=== PATIENT | female | born 1980 | race Caucasian/White ===

== ENCOUNTER → 2016-07-16 | Outpatient (CLI) | payer OTHER | LOC: MW.CHFP 09:54 | PROVIDERS: ATTEND Nurse Practitioner Family | DX: J02.9 Acute pharyngitis, unspecified (principal) | CPT/HCPCS: 87081; 87880 ==

== ENCOUNTER → 2016-09-08 | Outpatient (CLI) | payer OTHER | LOC: MW.CHFP 13:30 | PROVIDERS: ATTEND Nurse Practitioner Family | DX: Z00.00 Encounter for general adult medical examination without abnormal findings (principal) | CPT/HCPCS: 36415; 80061; 82947; 83036 ==

== ENCOUNTER 2017-01-24 21:10 | Emergency (ER) | payer OTHER ==
[2017-01-24] MEDS ORDERED: Sodium Chloride 0.9% 10 ML Syringe FLUSH PRN (21:24)
[2017-01-24] MEDS ORDERED: Sodium Chloride 0.9% 2.5 ML Syringe FLUSH PRN (21:24)
[2017-01-24] MEDS ORDERED: Sodium Chloride 0.9% 1,000 ML IV ONE (21:24)
--- NOTE | 2017-01-24 21:27 | EDM.PDOC ---
ED HPI GENERAL MEDICAL PROBLEM - General Chief Complaint: Cardiovascular Problem Stated Complaint: HBP/CHEST PAIN/DIZZY Time Seen by Provider: 01/24/17 21:25 Source of Information: Reports: Patient History Limitations: Reports: No Limitations - History of Present Illness INITIAL COMMENTS - FREE TEXT/NARRATIVE: HISTORY AND PHYSICAL: []36-year-old female presenting with dizziness and elevated blood pressure starting today History of Present Illness: []Patient relates to increased dizziness with standing up Patient has had a tubal ligation Review of Systems: As per history of present illness and below otherwise all systems reviewed and negative. Past medical history: As per history of present illness and as reviewed below otherwise noncontributory. Surgical history: As per history of present illness and as reviewed below otherwise noncontributory. Social history: No reported history of drug or alcohol abuse. Family history: As per history of present illness and as reviewed below otherwise noncontributory. Physical exam: Alert and oriented female, answering questions appropriately, does not look toxic. Answering questions in full sentences without shortness of breath HEENT: Atraumatic, normocehpalic, pupils reactive, negative for conjunctival pallor or scleral icterus, mucous membranes moist, throat clear, neck supple, nontender, trachea midline. Right tympanic membrane mild erythema slightly bulging. Lungs: Clear to auscultation, breath sounds equal bilaterally, chest non tender. Heart: S1S2, regular, negative for clicks, rubs, or JVD. Abdomen: Soft, nondistended, nontender. Negative for masses or hepatossplenmegaly. Negative for costovertebral tenderness. Pelvis: Stable nontender. Genitourinary: Deferred. Rectal: Deferred Extremities: Atraumatic, negative for cords or calf pain. Neurovascular unremarkable. Neuro: Awake, alert, oriented. Cranial nerves II through XII unremarkable. Cerebellum unremarkable. Motor and sensory unremarkable throughout. Exam nonfocal. Diagnostics: [CBC CMP and UA urine culture, orthostatic vitals, chest x-ray] Therapeutics: [Normal saline] Impression: [viral syndrome] Vertigo Plan: [Discharged to home Continue with by mouth fluids Off work for 24 hours Follow-up with your primary care provider in 2 days] Definitive disposition and diagnosis as appropriate pending reevaluation and review of above. Onset: Today, Sudden - Related Data Allergies Allergy/AdvReac Type Severity Reaction Status Date / Time Sulfa (Sulfonamide Allergy Intermediate Anaphylactic Verified 06/11/16 14:00 Antibiotics) Shock Home Meds: Home Meds Pregabalin [Lyrica] 75 mg PO TID 11/30/13 [History] traMADol [Ultram] 50 mg PO ASDIRECTED PRN 11/30/13 [History] Meclizine HCl 25 mg PO TID PRN #30 tablet 01/24/17 [Rx] Past Medical History Respiratory History: Reports: None. Denies: Asthma, COPD, PE Gastrointestinal History: Reports: GERD Genitourinary History: Reports: None. Denies: Chronic Renal Insuffiency Musculoskeletal History: Reports: Fibromyalgia, RA Endocrine/Metabolic History: Reports: None. Denies: Diabetes, Type II, Hypothyroidism - Infectious Disease History Infectious Disease History: Reports: Chicken Pox - Past Surgical History GI Surgical History: Reports: Appendectomy Social & Family History - Family History Family Medical History: Noncontributory HEENT: Reports: Impaired Vision Cardiac: Reports: Hypertension GI: Reports: Other (See Below) Other GI Family History: gastric problems OBGYN: Reports: Musculoskeletal: Reports: Arthritis Psychiatric: Reports: Anxiety, Depression Oncologic: Reports: Cervix, Skin - Tobacco Use Smoking Status *Q: Current Every Day Smoker Years of Tobacco use: 20 Packs/Tins Daily: 0.5 Used Tobacco, but Quit: No Second Hand Smoke Exposure: No - Caffeine Use Caffeine Use: Reports: Coffee - Alcohol Use Days Per Week of Alcohol Use: 3 Number of Drinks Per Day: 1 Total Drinks Per Week: 3 - Recreational Drug Use Recreational Drug Use: No - Living Situation & Occupation Living situation: Reports: Occupation: Employed ED ROS GENERAL - Review of Systems Review Of Systems: ROS reveals no pertinent complaints other than HPI. ED EXAM, GENERAL - Physical Exam Exam: See Below (See dictation) Course - Vital Signs Last Recorded V/S: Last Vital Signs Temp 36.8 C 01/24/17 21:13 Pulse 71 01/24/17 21:43 Resp 18 01/24/17 21:43 BP 127/82 01/24/17 21:43 Pulse Ox 98 01/24/17 21:43 - Orders/Labs/Meds Orders: Active Orders 24 hr Category Date Time Status Chest 2V [CR] Stat Exams 01/24/17 21:27 Ordered COMPREHENSIVE METABOLIC PN,CMP [CHEM] Stat Lab 01/24/17 21:25 Received CULTURE URINE [RM] Stat Lab 01/24/17 21:30 Received LIPASE [CHEM] Stat Lab 01/24/17 21:25 Received TSH [CHEM] Stat Lab 01/24/17 21:25 Received UA W/MICROSCOPIC [URIN] Stat Lab 01/24/17 21:30 Received Sodium Chloride 0.9% [Normal Saline] 1,000 ml Med 01/24/17 21:24 Active IV STAT Sodium Chloride 0.9% [Saline Flush] Med 01/24/17 21:24 Active 10 ml FLUSH ASDIRECTED PRN Sodium Chloride 0.9% [Saline Flush] Med 01/24/17 21:24 Active 2.5 ml FLUSH ASDIRECTED PRN Saline Lock Insert [OM.PC] Stat Oth 01/24/17 21:24 Ordered Medication Orders Sodium Chloride (Normal Saline) 1,000 mls @ 999 mls/hr IV STAT ONE Stop: 01/24/17 22:24 Last Admin: 01/24/17 21:41 Dose: 999 mls/hr Sodium Chloride (Saline Flush) 10 ml FLUSH ASDIRECTED PRN PRN Reason: Keep Vein Open Last Admin: 01/24/17 21:42 Dose: 10 ml Sodium Chloride (Saline Flush) 2.5 ml FLUSH ASDIRECTED PRN PRN Reason: Keep Vein Open Last Admin: 01/24/17 21:41 Dose: 2.5 ml Labs: Laboratory Tests 01/24/17 Range/Units 21:25 WBC 9.85 (4.0-11.0) K/uL RBC 4.20 L (4.30-5.90) M/uL Hgb 13.8 (12.0-16.0) g/dL Hct 40.2 (36.0-46.0) % MCV 95.7 (80.0-98.0) fL MCH 32.9 H (27.0-32.0) pg MCHC 34.3 (31.0-37.0) g/dL RDW Std Deviation 47.0 (28.0-62.0) fl RDW Coeff of Reji 13 (11.0-15.0) % Plt Count 254 (150-400) K/uL MPV 11.60 (7.40-12.00) fL Neut % (Auto) 54.5 (48.0-80.0) % Lymph % (Auto) 33.0 (16.0-40.0) % [place] % (Auto) 10.4 (0.0-15.0) % Eos % (Auto) 1.3 (0.0-7.0) % Baso % (Auto) 0.8 (0.0-1.5) % Neut # (Auto) 5.4 (1.4-5.7) K/uL Lymph # (Auto) 3.3 H (0.6-2.4) K/uL [place] # (Auto) 1.0 H (0.0-0.8) K/uL Eos # (Auto) 0.1 (0.0-0.7) K/uL Baso # (Auto) 0.1 (0.0-0.1) K/uL Nucleated RBC % 0.0 /100WBC Nucleated RBCs # 0 K/uL Meds: Medications Generic Name Dose Route Start Last Admin Trade Name Freq PRN Reason Stop Dose Admin Sodium Chloride 1,000 mls @ 999 mls/hr 01/24/17 21:24 01/24/17 21:41 Normal Saline IV 01/24/17 22:24 999 mls/hr STAT ONE Administration Sodium Chloride 10 ml 01/24/17 21:24 01/24/17 21:42 Saline Flush FLUSH 10 ml ASDIRECTED PRN Administration Keep Vein Open Sodium Chloride 2.5 ml 01/24/17 21:24 01/24/17 21:41 Saline Flush FLUSH 2.5 ml ASDIRECTED PRN Administration Keep Vein Open Departure - Departure Time of Disposition: 21:54 Disposition: Home, Self-Care 01 Condition: Good Clinical Impression: Acute viral syndrome Viral labyrinthitis syndrome Qualifiers: Laterality: right Qualified Code(s): H83.01 - Labyrinthitis, right ear Prescriptions: Meclizine HCl 25 mg PO TID PRN #30 tablet PRN Reason: Dizziness Referrals: Rhonda Franklin NP [Primary Care Provider] - Forms: ED Department Discharge - My Orders Last 24 Hours: My Active Orders 01/24/17 21:24 Sodium Chloride 0.9% [Normal Saline] 1,000 ml IV STAT Sodium Chloride 0.9% [Saline Flush] 10 ml FLUSH ASDIRECTED PRN Sodium Chloride 0.9% [Saline Flush] 2.5 ml FLUSH ASDIRECTED PRN Saline Lock Insert [OM.PC] Stat 01/24/17 21:25 COMPREHENSIVE METABOLIC PN,CMP [CHEM] Stat LIPASE [CHEM] Stat TSH [CHEM] Stat 01/24/17 21:27 Chest 2V [CR] Stat 01/24/17 21:30 CULTURE URINE [RM] Stat UA W/MICROSCOPIC [URIN] Stat - Assessment/Plan Last 24 Hours: My Active Orders 01/24/17 21:24 Sodium Chloride 0.9% [Normal Saline] 1,000 ml IV STAT Sodium Chloride 0.9% [Saline Flush] 10 ml FLUSH ASDIRECTED PRN Sodium Chloride 0.9% [Saline Flush] 2.5 ml FLUSH ASDIRECTED PRN Saline Lock Insert [OM.PC] Stat 01/24/17 21:25 COMPREHENSIVE METABOLIC PN,CMP [CHEM] Stat LIPASE [CHEM] Stat TSH [CHEM] Stat 01/24/17 21:27 Chest 2V [CR] Stat 01/24/17 21:30 CULTURE URINE [RM] Stat UA W/MICROSCOPIC [URIN] Stat
[2017-01-24 22:12] LABS: CHLORIDE,CL 108 mmol/L (98-110); SODIUM,NA 141 mmol/L (136-146)
[2017-01-24 23:21] VITALS: BP 128/70
--- NOTE | 2017-01-25 11:56 | CR ---
EXAM DATE: 01/24/17 PATIENT'S AGE: 36 Patient: COLE MCCARTHY Facility: [place], [place] Site . Site : [id number] Study: XRay Chest [id number] 10:10:20 PM Ordering Physician: Doctor Connor Final Report: INDICATION: hypertension TECHNIQUE: Chest radiograph 2 views COMPARISON: None FINDINGS: Cardiovascular and mediastinum: The cardiac silhouette is normal in appearance and size. Mediastinum is within normal limits. Lungs and pleural spaces: Both lungs are unremarkable in appearance. No sign of pleural effusion. No pneumothorax is seen. Bones and soft tissues: No significant findings. IMPRESSION: 1. No acute cardiopulmonary disease seen. Dictated by: Jasper Rushing MD @ 01/24/2017 22:25:16 (Electronic Signature) Report Signed by Proxy. [facility] HOSPITALNeelima
== END 2017-01-24 23:35 | disposition home or self-care (01) ==
LOC: MW.ED 21:10
DX: H83.01 Labyrinthitis, right ear (principal); B34.9 Viral infection, unspecified; R42 Dizziness and giddiness; K21.9 Gastro-esophageal reflux disease without esophagitis; F17.210 Nicotine dependence, cigarettes, uncomplicated; Z88.2 Allergy status to sulfonamides; Z90.49 Acquired absence of other specified parts of digestive tract
CPT/HCPCS: 36415; 71020; 80053; 81001; 83690; 84443; 85025; 87086; 96360; 96361; 99284; J7040; 99283

== ENCOUNTER 2021-02-24 12:22 | Inpatient (IN) | payer OTHER ==
[2021-02-24] MEDS ORDERED: Codeine/guaiFENesin 10-100 MG/5 ML Syrup 5 ML Cup PO ONE (13:28)
--- NOTE | 2021-02-24 13:56 | CR ---
INDICATION: Pain, shortness of breath. TECHNIQUE: Chest 1 view. COMPARISON: Chest radiograph 01/24/2017. FINDINGS: There are extensive streaky and patchy opacities throughout the lungs bilaterally suspicious for pneumonia. No pleural effusion or pneumothorax. Normal heart size. The bones are unremarkable. IMPRESSION: Extensive streaky and patchy opacities throughout the lungs bilaterally suspicious for pneumonia. Rule out COVID. Dictated by Gretta Hunt MD @ 02/24/2021 1:55:34 PM (Electronically Signed)
--- NOTE | 2021-02-24 13:58 | EDM.PDOC ---
ED HPI GENERAL MEDICAL PROBLEM - General Chief Complaint: Respiratory Problem Stated Complaint: LOW OXYGEN Time Seen by Provider: 02/24/21 12:43 Source of Information: Reports: Patient History Limitations: Reports: No Limitations - History of Present Illness INITIAL COMMENTS - FREE TEXT/NARRATIVE: Presents reporting a 1 week history of cough, some sore throat, headache, body aches, fever as high as 101. Her shortness of breath is progressively gotten worse since Tuesday. She has not been nauseated and has been taking oral fluids without vomiting. She has a history of fibromyalgia and vocal cord dysfunction. She does vape nicotine and has a [id number] smoking history. She does not currently smoke. She had a tubal ligation. She has taken NyQuil and DayQuil for her symptoms. She works alone but did have COVID exposure. headache Pain Score (Numeric/FACES): 7 - Related Data Allergies Allergy/AdvReac Type Severity Reaction Status Date / Time Sulfa (Sulfonamide Allergy Intermediate Anaphylactic Verified 02/24/21 12:33 Antibiotics) Shock Home Meds: Home Meds Pregabalin [Lyrica] 100 mg PO BID 11/30/13 [History] traMADol [Ultram] 50 mg PO BID PRN 11/30/13 [History] Norethindrone Acetate [Norethindrone AC ([place])] 5 mg PO BID 02/24/21 [History] Oxybutynin [Oxybutynin ER] 10 mg PO DAILY 02/24/21 [History] buPROPion [buPROPion XL] 150 mg PO DAILY 02/24/21 [History] Past Medical History HEENT History: Reports: None Cardiovascular History: Reports: None Respiratory History: Reports: None Gastrointestinal History: Reports: GERD Genitourinary History: Reports: None [employer] History: Reports: Musculoskeletal History: Reports: Fibromyalgia, RA Neurological History: Reports: None Psychiatric History: Reports: None Endocrine/Metabolic History: Reports: None Hematologic History: Reports: None Immunologic History: Reports: None Oncologic (Cancer) History: Reports: None Dermatologic History: Reports: None - Infectious Disease History Infectious Disease History: Reports: Chicken Pox - Past Surgical History Head Surgeries/Procedures: Reports: None GI Surgical History: Reports: Appendectomy Female Surgical History: Reports: Tubal Ligation Social & Family History - Family History Family Medical History: No Pertinent Family History HEENT: Reports: Impaired Vision Cardiac: Reports: Hypertension GI: Reports: Other (See Below) Other GI Family History: gastric problems OBGYN: Reports: Musculoskeletal: Reports: Arthritis Psychiatric: Reports: Anxiety, Depression Oncologic: Reports: Cervix, Skin - Tobacco Use Tobacco Use Status *Q: Current Every Day Tobacco User Years of Tobacco use: 20 Packs/Tins Daily: 1 - Caffeine Use Caffeine Use: Reports: Coffee, Energy Drinks, Tea - Recreational Drug Use Recreational Drug Use: No - Living Situation & Occupation Living situation: Reports: Occupation: Employed ED ROS GENERAL - Review of Systems Review Of Systems: Comprehensive ROS is negative, except as noted in HPI. ED EXAM, GENERAL - Physical Exam Exam: See Below Exam Limited By: No Limitations General Appearance: Alert, Mild Distress (due to cough and SOB) Ears: Normal External Exam, Normal TMs Nose: Normal Inspection Throat/Mouth: Normal Inspection, Normal Oropharynx, No Airway Compromise, Other (Hx of vocal cord dysfunction with retrained mechanics of breathing) Head: Atraumatic, Normocephalic Neck: Normal Inspection Respiratory/Chest: No Respiratory Distress, Decreased Breath Sounds, Other (tachypnea, harsh almost continuous cough in exam room) Cardiovascular: Normal Peripheral Pulses GI/Abdominal: Normal Bowel Sounds, Soft, No Distention Back Exam: Normal Inspection Extremities: Normal Inspection Neurological: Alert, Oriented Psychiatric: Normal Affect, Normal Mood Skin Exam: Warm, Intact, Normal Color, No Rash, Diaphoretic (mild) Lymphatic: No Adenopathy Course - Vital Signs Text/Narrative:: Tachycardia and tachypnea likely due to COVID pneumonia. Discussion with Dr. Hui, hospitalist service. Same will admit for COVID related pneumonia and hypoxemia. Last Recorded V/S: Last Vital Signs Temp 36.4 C 02/24/21 12:32 Pulse 100 02/24/21 15:47 Resp 28 H 02/24/21 15:47 BP 148/82 H 02/24/21 15:47 Pulse Ox 94 L 02/24/21 15:47 - Orders/Labs/Meds Orders: Active Orders 24 hr Category Date Time Status Patient Status [ADT] Stat ADT 02/24/21 16:40 Ordered BILIRUBIN DIRECT [CHEM] DAILY Lab 02/25/21 14:30 Ordered BILIRUBIN DIRECT [CHEM] DAILY Lab 02/26/21 14:30 Ordered BILIRUBIN DIRECT [CHEM] DAILY Lab 02/27/21 14:30 Ordered BILIRUBIN DIRECT [CHEM] DAILY Lab 02/28/21 14:30 Ordered COMPREHENSIVE METABOLIC PN,CMP [CHEM] DAILY Lab 02/25/21 14:30 Ordered COMPREHENSIVE METABOLIC PN,CMP [CHEM] DAILY Lab 02/26/21 14:30 Ordered COMPREHENSIVE METABOLIC PN,CMP [CHEM] DAILY Lab 02/27/21 14:30 Ordered COMPREHENSIVE METABOLIC PN,CMP [CHEM] DAILY Lab 02/28/21 14:30 Ordered Sodium Chloride 0.9% [Normal Saline] 1,000 ml Med 02/24/21 15:33 Active IV STAT Medication Orders Sodium Chloride (Normal Saline) 1,000 mls @ 30 mls/hr IV STAT STA Stop: 02/26/21 00:52 Last Admin: 02/24/21 15:35 Dose: 30 mls/hr Documented by: ALICE Labs: Laboratory Tests 02/24/21 02/24/21 02/24/21 Range/Units 13:05 15:27 15:27 WBC (4.0-11.0) K/uL RBC (4.30-5.90) M/uL Hgb (12.0-16.0) g/dL Hct (36.0-46.0) % MCV (80.0-98.0) fL MCH (27.0-32.0) pg MCHC (31.0-37.0) g/dL RDW Std Deviation (28.0-62.0) fl RDW Coeff of Reji (11.0-15.0) % Plt Count (150-400) K/uL MPV (7.40-12.00) fL Neut % (Auto) (48.0-80.0) % Lymph % (Auto) (16.0-40.0) % [place] % (Auto) (0.0-15.0) % Eos % (Auto) (0.0-7.0) % Baso % (Auto) (0.0-1.5) % Neut # (Auto) (1.4-5.7) K/uL Lymph # (Auto) (0.6-2.4) K/uL [place] # (Auto) (0.0-0.8) K/uL Eos # (Auto) (0.0-0.7) K/uL Baso # (Auto) (0.0-0.1) K/uL Nucleated RBC % /100WBC Nucleated RBCs # K/uL Sodium 143 (136-145) mmol/L Potassium 3.7 (3.5-5.1) mmol/L Chloride 104 (98-107) mmol/L Carbon Dioxide 22.7 (21.0-32.0) mmol/L BUN 10 (7.0-18.0) mg/dL Creatinine 1.0 (0.6-1.0) mg/dL Est Cr Clr Drug Dosing 74.68 mL/min Estimated GFR (MDRD) > 60.0 ml/min Glucose 117 H (74-106) mg/dL Calcium 7.7 L (8.5-10.1) mg/dL Total Bilirubin 0.4 (0.2-1.0) mg/dL Direct Bilirubin 0.10 (0.0-0.5) mg/dL AST 107 H (15-37) IU/L ALT 155 H (14-63) IU/L Alkaline Phosphatase 82 (46-116) U/L Troponin I < 0.050 (0.000-0.056) ng/mL Total Protein 6.9 (6.4-8.2) g/dL Albumin 2.8 L (3.4-5.0) g/dL Globulin 4.1 H (2.6-4.0) g/dL Albumin/Globulin Ratio 0.7 L (0.9-1.6) SARS-CoV-2 RNA (ALEXANDER) POSITIVE H (NEGATIVE) 02/24/21 Range/Units 15:27 WBC 11.75 H (4.0-11.0) K/uL RBC 4.53 (4.30-5.90) M/uL Hgb 14.7 (12.0-16.0) g/dL Hct 41.7 (36.0-46.0) % MCV 92.1 (80.0-98.0) fL MCH 32.5 H (27.0-32.0) pg MCHC 35.3 (31.0-37.0) g/dL RDW Std Deviation 47.1 (28.0-62.0) fl RDW Coeff of Reji 14 (11.0-15.0) % Plt Count 226 (150-400) K/uL MPV 10.80 (7.40-12.00) fL Neut % (Auto) 90.8 H (48.0-80.0) % Lymph % (Auto) 7.7 L (16.0-40.0) % [place] % (Auto) 1.4 (0.0-15.0) % Eos % (Auto) 0.0 (0.0-7.0) % Baso % (Auto) 0.1 (0.0-1.5) % Neut # (Auto) 10.7 H (1.4-5.7) K/uL Lymph # (Auto) 0.9 (0.6-2.4) K/uL [place] # (Auto) 0.2 (0.0-0.8) K/uL Eos # (Auto) 0.0 (0.0-0.7) K/uL Baso # (Auto) 0.0 (0.0-0.1) K/uL Nucleated RBC % 0.0 /100WBC Nucleated RBCs # 0 K/uL Sodium (136-145) mmol/L Potassium (3.5-5.1) mmol/L Chloride (98-107) mmol/L Carbon Dioxide (21.0-32.0) mmol/L BUN (7.0-18.0) mg/dL Creatinine (0.6-1.0) mg/dL Est Cr Clr Drug Dosing mL/min Estimated GFR (MDRD) ml/min Glucose (74-106) mg/dL Calcium (8.5-10.1) mg/dL Total Bilirubin (0.2-1.0) mg/dL Direct Bilirubin (0.0-0.5) mg/dL AST (15-37) IU/L ALT (14-63) IU/L Alkaline Phosphatase (46-116) U/L Troponin I (0.000-0.056) ng/mL Total Protein (6.4-8.2) g/dL Albumin (3.4-5.0) g/dL Globulin (2.6-4.0) g/dL Albumin/Globulin Ratio (0.9-1.6) SARS-CoV-2 RNA (ALEXANDER) (NEGATIVE) Meds: Medications Generic Name Dose Route Start Last Admin Trade Name Freq PRN Reason Stop Dose Admin Sodium Chloride 1,000 mls @ 30 mls/hr 02/24/21 15:33 02/24/21 15:35 Normal Saline IV 02/26/21 00:52 30 mls/hr STAT STA Administration Discontinued Medications Generic Name Dose Route Start Last Admin Trade Name Darryn PRN Reason Stop Dose Admin Dexamethasone 6 mg 02/24/21 14:39 02/24/21 15:01 Dexamethasone 10 Mg/Ml Sdv IVPUSH 02/24/21 14:40 6 mg ONETIME ONE Administration Guaifenesin/Codeine Phosphate 10 ml 02/24/21 13:28 02/24/21 13:45 Codeine/Guaifenesin 10-100 Mg/5 Ml Syrup 5 Ml Cup PO 02/24/21 13:29 10 ml ONETIME ONE Administration Remdesivir 200 mg/ Sodium 250 mls @ 250 mls/hr 02/24/21 15:15 02/24/21 15:35 Chloride IV 02/24/21 16:14 250 mls/hr ONETIME ONE Administration Departure - Departure Time of Disposition: 16:51 Disposition: Admitted As Inpatient 65 Condition: Fair Clinical Impression: Hypoxemia, COVID-19 - Discharge Information Referrals: Bronson Stuart MD [Primary Care Provider] - Forms: ED Department Discharge Sepsis Event Note (ED) - Evaluation Sepsis Screening Result: Possible Sepsis Risk - Focused Exam Vital Signs: Vital Signs Temp Pulse Resp BP Pulse Ox 02/24/21 15:47 100 28 H 148/82 H 94 L 02/24/21 13:47 99 20 153/90 H 92 L 02/24/21 12:32 36.4 C 113 H 28 H 153/90 H 90 L - My Orders Last 24 Hours: My Active Orders 02/24/21 15:33 Sodium Chloride 0.9% [Normal Saline] 1,000 ml IV STAT 02/24/21 16:40 Patient Status [ADT] Stat 02/25/21 14:30 BILIRUBIN DIRECT [CHEM] DAILY COMPREHENSIVE METABOLIC PN,CMP [CHEM] DAILY 02/26/21 14:30 BILIRUBIN DIRECT [CHEM] DAILY COMPREHENSIVE METABOLIC PN,CMP [CHEM] DAILY 02/27/21 14:30 BILIRUBIN DIRECT [CHEM] DAILY COMPREHENSIVE METABOLIC PN,CMP [CHEM] DAILY 02/28/21 14:30 BILIRUBIN DIRECT [CHEM] DAILY COMPREHENSIVE METABOLIC PN,CMP [CHEM] DAILY - Assessment/Plan Last 24 Hours: My Active Orders 02/24/21 15:33 Sodium Chloride 0.9% [Normal Saline] 1,000 ml IV STAT 02/24/21 16:40 Patient Status [ADT] Stat 02/25/21 14:30 BILIRUBIN DIRECT [CHEM] DAILY COMPREHENSIVE METABOLIC PN,CMP [CHEM] DAILY 02/26/21 14:30 BILIRUBIN DIRECT [CHEM] DAILY COMPREHENSIVE METABOLIC PN,CMP [CHEM] DAILY 02/27/21 14:30 BILIRUBIN DIRECT [CHEM] DAILY COMPREHENSIVE METABOLIC PN,CMP [CHEM] DAILY 02/28/21 14:30 BILIRUBIN DIRECT [CHEM] DAILY COMPREHENSIVE METABOLIC PN,CMP [CHEM] DAILY
[2021-02-24] MEDS ORDERED: REMDESIVIR 200 MG in Sodium Chloride 0.9% 250 ML IV ONE ×2 (14:22→15:15)
[2021-02-24] MEDS ORDERED: Dexamethasone 10 MG/ML SDV IVPUSH ONE (14:39)
[2021-02-24] MEDS ORDERED: Sodium Chloride 0.9% 1,000 ML IV STA (15:33)
[2021-02-24 16:16] LABS: BLOOD UREA NITROGEN,BUN 10 mg/dL (7.0-18.0); CARBON DIOXIDE,CO2 22.7 mmol/L (21.0-32.0); CHLORIDE,CL 104 mmol/L (98-107); GLUCOSE RANDOM 117 mg/dL (74-106); POTASSIUM,K 3.7 mmol/L (3.5-5.1); SODIUM,NA 143 mmol/L (136-145)
[2021-02-24] MEDS ORDERED: Ondansetron 4 MG/2 ML SDV IVPUSH PRN (18:27)
[2021-02-24] MEDS ORDERED: Albuterol/Ipratropium 3.0-0.5 MG/3 ML Neb Soln NEB PRN (18:27)
--- NOTE | 2021-02-24 18:38 | PCM.HP.2 ---
H&P History of Present Illness - General Date of Service: 02/24/21 Admit Problem/Dx: Admission Diagnosis/Problem Admission Diagnosis/Problem Pneumonia - History of Present Illness Initial Comments - Free Text/Narative: Patient is a 40 y/o F with PMH of fibromyalgia, vocal cord dysfunction, Presents to ER reporting a 1 week history of cough, some sore throat, headache, body aches, fever as high as 101. Her shortness of breath is progressively gotten worse since Tuesday. She does vape nicotine and has a [id number] smoking history. She does not currently smoke. In the ER patient was found to be hypoxic, was started on NC for oxygenation, cxr showed b/l infiltrates, tested positive for COVID. Patient was admitted for further management. headache Pain Score (Numeric/FACES): 7 - Related Data Allergies/Adverse Reactions: Allergies Allergy/AdvReac Type Severity Reaction Status Date / Time Sulfa (Sulfonamide Allergy Intermediate Anaphylactic Verified 02/24/21 12:33 Antibiotics) Shock Home Medications: Home Meds Pregabalin [Lyrica] 100 mg PO TID 11/30/13 [History] traMADol [Ultram] 50 mg PO BID PRN 11/30/13 [History] Norethindrone Acetate [Norethindrone AC ([place])] 5 mg PO BID 02/24/21 [History] Oxybutynin [Oxybutynin ER] 10 mg PO DAILY 02/24/21 [History] buPROPion [buPROPion XL] 150 mg PO DAILY 02/24/21 [History] Past Medical History HEENT History: Reports: None Cardiovascular History: Reports: None Respiratory History: Reports: None Gastrointestinal History: Reports: GERD Genitourinary History: Reports: None SHIRT HEMMER History: Reports: Musculoskeletal History: Reports: Fibromyalgia, RA Neurological History: Reports: None Psychiatric History: Reports: None Endocrine/Metabolic History: Reports: None Hematologic History: Reports: None Immunologic History: Reports: None Oncologic (Cancer) History: Reports: None Dermatologic History: Reports: None - Infectious Disease History Infectious Disease History: Reports: Chicken Pox - Past Surgical History Head Surgeries/Procedures: Reports: None GI Surgical History: Reports: Appendectomy Female Surgical History: Reports: Tubal Ligation Social & Family History - Family History Family Medical History: No Pertinent Family History HEENT: Reports: Impaired Vision Cardiac: Reports: Hypertension GI: Reports: Other (See Below) Other GI Family History: gastric problems OBGYN: Reports: Musculoskeletal: Reports: Arthritis Psychiatric: Reports: Anxiety, Depression Oncologic: Reports: Cervix, Skin - Tobacco Use Tobacco Use Status *Q: Current Every Day Tobacco User Years of Tobacco use: 20 Packs/Tins Daily: 1 - Caffeine Use Caffeine Use: Reports: Coffee, Energy Drinks, Tea - Recreational Drug Use Recreational Drug Use: No - Living Situation & Occupation Living situation: Reports: Occupation: Employed H&P Review of Systems - Review of Systems: Review Of Systems: See Below General: Reports: Fever, Malaise, Weakness, Fatigue. Denies: Chills HEENT: Reports: Sinus Congestion. Denies: Dysphasia, Ear Pain, Eye Pain Pulmonary: Reports: Shortness of Breath, Wheezing, Cough, Sputum. Denies: Pleuritic Chest Pain Cardiovascular: Reports: Dyspnea on Exertion. Denies: Chest Pain, Palpitations, Orthopnea, PND, Lightheadedness, Syncope, Claudication Gastrointestinal: Reports: Anorexia, Decreased Appetite. Denies: Abdominal Pain, Black Stool, Bloody Stool, Constipation, Diarrhea, Distension, Mucous in Stool, Nausea, Vomiting Genitourinary: Denies: Dysuria, Frequency, Burning, Urgency Musculoskeletal: Denies: Neck Pain, Shoulder Pain, Arm Pain, Back Pain Skin: Denies: Cyanosis, Jaundice, Mottled Exam - Exam Exam: See Below - Vital Signs Vital Signs: Last Vital Signs Temp 36.4 C 02/24/21 17:59 Pulse 105 H 02/24/21 17:59 Resp 24 H 02/24/21 17:59 BP 146/89 H 02/24/21 17:59 Pulse Ox 94 L 02/24/21 17:59 Weight: 108.862 kg - Exam Quality Assessment: Supplemental Oxygen General: Alert, Oriented, Mild Distress HEENT: Conjunctiva Clear Neck: Supple, Trachea Midline Lungs: Normal Respiratory Effort, Decreased Breath Sounds, Crackles, Rales Cardiovascular: Regular Rate, Regular Rhythm GI/Abdominal Exam: Normal Bowel Sounds, Soft Extremities: Normal Inspection, Normal Range of Motion, Non-Tender, No Pedal Edema - Patient Data Lab Results Last 24 hrs: Laboratory Results - last 24 hr 10/19/21 10/19/21 10/19/21 Range/Units 13:05 15:27 15:27 WBC (4.0-11.0) K/uL RBC (4.30-5.90) M/uL Hgb (12.0-16.0) g/dL Hct (36.0-46.0) % MCV (80.0-98.0) fL MCH (27.0-32.0) pg MCHC (31.0-37.0) g/dL RDW Std Deviation (28.0-62.0) fl RDW Coeff of Erji (11.0-15.0) % Plt Count (150-400) K/uL MPV (7.40-12.00) fL Neut % (Auto) (48.0-80.0) % Lymph % (Auto) (16.0-40.0) % [place] % (Auto) (0.0-15.0) % Eos % (Auto) (0.0-7.0) % Baso % (Auto) (0.0-1.5) % Neut # (Auto) (1.4-5.7) K/uL Lymph # (Auto) (0.6-2.4) K/uL [place] # (Auto) (0.0-0.8) K/uL Eos # (Auto) (0.0-0.7) K/uL Baso # (Auto) (0.0-0.1) K/uL Nucleated RBC % /100WBC Nucleated RBCs # K/uL Sodium 143 (136-145) mmol/L Potassium 3.7 (3.5-5.1) mmol/L Chloride 104 (98-107) mmol/L Carbon Dioxide 22.7 (21.0-32.0) mmol/L BUN 10 (7.0-18.0) mg/dL Creatinine 1.0 (0.6-1.0) mg/dL Est Cr Clr Drug Dosing 74.68 mL/min Estimated GFR (MDRD) > 60.0 ml/min Glucose 117 H (74-106) mg/dL Calcium 7.7 L (8.5-10.1) mg/dL Total Bilirubin 0.4 (0.2-1.0) mg/dL Direct Bilirubin 0.10 (0.0-0.5) mg/dL AST 107 H (15-37) IU/L ALT 155 H (14-63) IU/L Alkaline Phosphatase 82 (46-116) U/L Troponin I < 0.050 (0.000-0.056) ng/mL Total Protein 6.9 (6.4-8.2) g/dL Albumin 2.8 L (3.4-5.0) g/dL Globulin 4.1 H (2.6-4.0) g/dL Albumin/Globulin Ratio 0.7 L (0.9-1.6) SARS-CoV-2 RNA (ALEXANDER) POSITIVE H (NEGATIVE) 02/24/21 Range/Units 15:27 WBC 11.75 H (4.0-11.0) K/uL RBC 4.53 (4.30-5.90) M/uL Hgb 14.7 (12.0-16.0) g/dL Hct 41.7 (36.0-46.0) % MCV 92.1 (80.0-98.0) fL MCH 32.5 H (27.0-32.0) pg MCHC 35.3 (31.0-37.0) g/dL RDW Std Deviation 47.1 (28.0-62.0) fl RDW Coeff of Reji 14 (11.0-15.0) % Plt Count 226 (150-400) K/uL MPV 10.80 (7.40-12.00) fL Neut % (Auto) 90.8 H (48.0-80.0) % Lymph % (Auto) 7.7 L (16.0-40.0) % [place] % (Auto) 1.4 (0.0-15.0) % Eos % (Auto) 0.0 (0.0-7.0) % Baso % (Auto) 0.1 (0.0-1.5) % Neut # (Auto) 10.7 H (1.4-5.7) K/uL Lymph # (Auto) 0.9 (0.6-2.4) K/uL [place] # (Auto) 0.2 (0.0-0.8) K/uL Eos # (Auto) 0.0 (0.0-0.7) K/uL Baso # (Auto) 0.0 (0.0-0.1) K/uL Nucleated RBC % 0.0 /100WBC Nucleated RBCs # 0 K/uL Sodium (136-145) mmol/L Potassium (3.5-5.1) mmol/L Chloride (98-107) mmol/L Carbon Dioxide (21.0-32.0) mmol/L BUN (7.0-18.0) mg/dL Creatinine (0.6-1.0) mg/dL Est Cr Clr Drug Dosing mL/min Estimated GFR (MDRD) ml/min Glucose (74-106) mg/dL Calcium (8.5-10.1) mg/dL Total Bilirubin (0.2-1.0) mg/dL Direct Bilirubin (0.0-0.5) mg/dL AST (15-37) IU/L ALT (14-63) IU/L Alkaline Phosphatase (46-116) U/L Troponin I (0.000-0.056) ng/mL Total Protein (6.4-8.2) g/dL Albumin (3.4-5.0) g/dL Globulin (2.6-4.0) g/dL Albumin/Globulin Ratio (0.9-1.6) SARS-CoV-2 RNA (ALEXANDER) (NEGATIVE) Result Diagrams: 02/24/21 15:27 02/24/21 15:27 Tk Results Last 24 hrs: Microbiology 02/24/21 13:05 Influenza Type A Antigen Screen - Final Nasopharyngeal Swab NEGATIVE INFLUENZA A VIRUS AG REFERENCE RANGE: NEGATIVE Influenza Type B Antigen Screen - Final NEGATIVE INFLUENZA B VIRUS AG REFERENCE RANGE: NEGATIVE Sepsis Event Note - Evaluation Sepsis Screening Result: Possible Sepsis Risk - Focused Exam Vital Signs: Vital Signs Temp Pulse Resp BP Pulse Ox 02/24/21 17:59 36.4 C 105 H 24 H 146/89 H 94 L 02/24/21 15:47 100 28 H 148/82 H 94 L 02/24/21 13:47 99 20 153/90 H 92 L 02/24/21 12:32 36.4 C 113 H 28 H 153/90 H 90 L - Problem List (1) Acute respiratory failure with hypoxia SNOMED Code(s): 07138176, 212702937 ICD Code: J96.01 - ACUTE RESPIRATORY FAILURE WITH HYPOXIA Status: Acute Current Visit: Yes (2) Vocal cord dysfunction SNOMED Code(s): 662283237 ICD Code: J38.3 - OTHER DISEASES OF VOCAL CORDS Status: Acute Current Visit: Yes (3) COVID-19 SNOMED Code(s): 770045802 ICD Code: U07.1 - COVID-19 Status: Acute Current Visit: Yes (4) Hypoxemia SNOMED Code(s): 888320349 ICD Code: R09.02 - HYPOXEMIA Status: Acute Current Visit: Yes (5) Acute viral syndrome SNOMED Code(s): 755303246 ICD Code: B34.9 - VIRAL INFECTION, UNSPECIFIED Status: Acute Current Visit: No (6) Fibromyalgia SNOMED Code(s): 778992346 ICD Code: M79.7 - FIBROMYALGIA Status: Chronic Current Visit: No Problem List Initiated/Reviewed/Updated: Yes Orders Last 24hrs: Active Orders 24 hr Category Date Time Status Patient Status [ADT] Stat ADT 02/24/21 16:40 Active Ambulate [RC] ASDIRECTED Care 02/24/21 18:27 Active Antiembolic Devices [RC] PER UNIT ROUTINE Care 02/24/21 18:29 Active Oxygen Therapy [RC] PRN Care 02/24/21 18:27 Active Pulse Oximetry [RC] PRN Care 02/24/21 18:28 Active RT Aerosol Therapy [RC] ASDIRECTED Care 02/24/21 18:29 Active RT Post Treatment Assessment [RC] Click to Edit Care 02/24/21 18:33 Active RT Pre-Treatment Assessment [RC] Click to Edit Care 02/24/21 18:33 Active VTE/DVT Education [RC] PER UNIT ROUTINE Care 02/24/21 18:27 Active Vital Signs [RC] Q4H Care 02/24/21 18:27 Active Regular Diet [DIET] Diet 02/24/21 Dinner Active CBC WITH AUTO DIFF [HEME] AM Lab 02/25/21 05:11 Ordered CMP [COMPREHENSIVE METABOLIC PN,CMP] [CHEM] AM Lab 02/25/21 05:11 Ordered Acetaminophen [TylenoL] Med 02/24/21 18:27 Active 650 mg PO Q4H PRN Albuterol/Ipratropium [Combivent Respimat] Med 02/24/21 18:45 Ordered See Dose Instructions INH Q4H Albuterol/Ipratropium [DuoNeb 3.0-0.5 MG/3 ML] Med 02/24/21 18:27 Active 3 ml NEB Q4HRRT PRN Codeine/guaiFENesin [Robitussin AC] Med 02/24/21 18:32 Active 5 ml PO Q4H PRN Enoxaparin [Lovenox] Med 02/24/21 18:00 Active 40 mg SUBCUT Q24H Norethindrone [Aygestin] Med 02/24/21 21:00 Ordered 5 mg PO BID Ondansetron [Zofran] Med 02/24/21 18:27 Active 4 mg IVPUSH Q4H PRN Oxybutynin Med 02/25/21 09:00 Ordered 10 mg PO DAILY Pantoprazole [ProTONIX IV] Med 02/25/21 09:00 Active 40 mg IV DAILY Pregabalin [Lyrica] Med 02/24/21 22:00 Ordered 100 mg PO TID Remdesivir 100 mg Med 02/25/21 09:00 Active Sodium Chloride 0.9% [Normal Saline] 100 ml IV Q24H Sodium Chloride 0.9% [Normal Saline] 1,000 ml Med 02/24/21 15:33 Active IV STAT buPROPion [Wellbutrin XL] Med 02/25/21 09:00 Ordered 150 mg PO DAILY dexAMETHasone Med 02/25/21 09:00 Active 6 mg PO DAILY traMADol [Ultram] Med 02/24/21 18:36 Ordered 50 mg PO BID PRN Sequential Compression Device [OM.PC] Per Unit Routine Oth 02/24/21 18:28 Ordered Resuscitation Status Routine Resus Stat 02/24/21 18:27 Ordered Medication Orders Acetaminophen (Acetaminophen 325 Mg Tab) 650 mg PO Q4H PRN PRN Reason: Pain (Mild 1-3)/fever Albuterol/Ipratropium (Albuterol/Ipratropium 3.0-0.5 Mg/3 Ml Neb Soln) 3 ml NEB Q4HRRT PRN PRN Reason: Shortness Of Breath/wheezing Albuterol/Ipratropium (Albuterol/Ipratropium 4 Gm Inhalation [place]) 0 gm INH Q4H DANIEL Bupropion HCl (Bupropion 150 Mg Tab.Er) 150 mg PO DAILY DANIEL Dexamethasone (Dexamethasone 4 Mg Tab) 6 mg PO DAILY DANIEL Enoxaparin Sodium (Enoxaparin 40 Mg/0.4 Ml Syringe) 40 mg SUBCUT Q24H [facility] Guaifenesin/Codeine Phosphate (Codeine/Guaifenesin 10-100 Mg/5 Ml Syrup 5 Ml Cup) 5 ml PO Q4H PRN PRN Reason: Cough Sodium Chloride (Normal Saline) 1,000 mls @ 30 mls/hr IV STAT STA Stop: 02/26/21 00:52 Last Admin: 02/24/21 15:35 Dose: 30 mls/hr Documented by: GROTALI Remdesivir 100 mg/ Sodium (Chloride) 100 mls @ 100 mls/hr IV Q24H [facility] Stop: 02/28/21 09:59 Non-Formulary Medication (Oxybutynin) 10 mg PO DAILY DANIEL Norethindrone (Norethindrone 5 Mg Tab) 5 mg PO BID DANIEL Ondansetron HCl (Ondansetron 4 Mg/2 Ml Sdv) 4 mg IVPUSH Q4H PRN PRN Reason: Nausea/Vomiting Pantoprazole Sodium (Pantoprazole 40 Mg Vial) 40 mg IV DAILY DANIEL Pregabalin (Pregabalin 75 Mg Cap) 100 mg PO TID DANIEL Tramadol HCl (Tramadol 50 Mg Tab) 50 mg PO BID PRN PRN Reason: Pain Assessment/Plan Comment:: 40 y/o F admitted for Acute hypoxic resp failure due to covid 19 start oxygenation vis NC cont remdesivir cont dexamethasone DuoNEbs as needed Combivent q4h DANIEL Lovenox daily for dvt ppx Robitussin for cough Encourage IS and proning cont supportive care resume home meds as appropriate
[2021-02-24] MEDS: Albuterol/Ipratropium 4 GM Inhalation Spray INH SCH ×2 (19:00→22:06)
[2021-02-24] MEDS: Enoxaparin 40 MG/0.4 ML Syringe SUBCUT SCH (19:00)
[2021-02-24] MEDS: Acetaminophen 325 MG Tab PO PRN (19:44)
[2021-02-24] MEDS: Codeine/guaiFENesin 10-100 MG/5 ML Syrup 5 ML Cup PO PRN (19:44)
[2021-02-24] MEDS: Pregabalin 50 MG Cap PO SCH (22:05)
[2021-02-25] MEDS: Albuterol/Ipratropium 4 GM Inhalation Spray INH SCH ×6 (01:52→21:19)
[2021-02-25] MEDS: Pregabalin 50 MG Cap PO SCH ×3 (06:23→21:18)
[2021-02-25] MEDS: Acetaminophen 325 MG Tab PO PRN ×3 (06:34→21:19)
[2021-02-25 06:46] LABS: BLOOD UREA NITROGEN,BUN 10 mg/dL (7.0-18.0); CHLORIDE,CL 103 mmol/L (98-107); GLUCOSE RANDOM 140 mg/dL (74-106); POTASSIUM,K 4.4 mmol/L (3.5-5.1); SODIUM,NA 140 mmol/L (136-145)
[2021-02-25] MEDS: buPROPion 150 MG Tab.ER PO SCH (08:51)
[2021-02-25] MEDS: Dexamethasone 4 MG Tab PO SCH (08:51)
[2021-02-25] MEDS: Pantoprazole 40 MG Vial IV SCH (08:51)
[2021-02-25] MEDS: traMADol 50 MG Tab PO PRN ×2 (08:52→18:23)
[2021-02-25] MEDS ORDERED: REMDESIVIR 100 MG in Sodium Chloride 0.9% 100 ML IV SCH (09:00)
[2021-02-25] MEDS ORDERED: Dexamethasone 4 MG Tab PO SCH (09:00)
[2021-02-25] MEDS: Codeine/guaiFENesin 10-100 MG/5 ML Syrup 5 ML Cup PO PRN ×3 (09:56→23:44)
--- NOTE | 2021-02-25 13:39 | PCM.PN ---
- General Info Date of Service: 02/25/21 Admission Dx/Problem (Free Text): Admission Diagnosis/Problem Admission Diagnosis/Problem Pneumonia Subjective Update: Patient seen at bedside, looks very fatigued but states that she is feeling much better than yesterday, continues to have coughing spells currently on 3 L of oxygen Functional Status: Reports: Pain Controlled, Tolerating Diet, Ambulating, Urinating - Review of Systems General: Reports: Weakness, Fatigue, Malaise Pulmonary: Reports: Shortness of Breath, Pleuritic Chest Pain, Cough, Sputum Cardiovascular: Reports: Dyspnea on Exertion. Denies: Chest Pain, Palpitations, Orthopnea Gastrointestinal: Reports: Decreased Appetite. Denies: Abdominal Pain, Constipation, Diarrhea, Difficulty Swallowing, Nausea, Vomiting Genitourinary: Denies: Frequency, Burning, Pain Musculoskeletal: Denies: Neck Pain, Shoulder Pain, Arm Pain Skin: Denies: Cyanosis, Jaundice, Mottled, Pallor Neurological: Denies: Confusion, Dizziness, Headache - Patient Data Vitals - Most Recent: Last Vital Signs Temp 36.3 C 02/25/21 12:00 Pulse 74 02/25/21 12:00 Resp 22 H 02/25/21 12:00 BP 128/64 02/25/21 12:00 Pulse Ox 89 L 02/25/21 12:00 Weight - Most Recent: 105.007 kg I&O - Last 24 Hours: Intake & Output 02/24/21 02/25/21 02/25/21 22:59 06:59 14:59 Intake Total 850 Output Total 350 Balance 500 Lab Results Last 24 Hours: Laboratory Results - last 24 hr 02/24/21 02/24/21 02/24/21 Range/Units 13:05 15:27 15:27 WBC (4.0-11.0) K/uL RBC (4.30-5.90) M/uL Hgb (12.0-16.0) g/dL Hct (36.0-46.0) % MCV (80.0-98.0) fL MCH (27.0-32.0) pg MCHC (31.0-37.0) g/dL RDW Std Deviation (28.0-62.0) fl RDW Coeff of Reji (11.0-15.0) % Plt Count (150-400) K/uL MPV (7.40-12.00) fL Neut % (Auto) (48.0-80.0) % Lymph % (Auto) (16.0-40.0) % [place] % (Auto) (0.0-15.0) % Eos % (Auto) (0.0-7.0) % Baso % (Auto) (0.0-1.5) % Neut # (Auto) (1.4-5.7) K/uL Lymph # (Auto) (0.6-2.4) K/uL [place] # (Auto) (0.0-0.8) K/uL Eos # (Auto) (0.0-0.7) K/uL Baso # (Auto) (0.0-0.1) K/uL Nucleated RBC % /100WBC Nucleated RBCs # K/uL Sodium 143 (136-145) mmol/L Potassium 3.7 (3.5-5.1) mmol/L Chloride 104 (98-107) mmol/L Carbon Dioxide 22.7 (21.0-32.0) mmol/L BUN 10 (7.0-18.0) mg/dL Creatinine 1.0 (0.6-1.0) mg/dL Est Cr Clr Drug Dosing 74.68 mL/min Estimated GFR (MDRD) > 60.0 ml/min Glucose 117 H (74-106) mg/dL Calcium 7.7 L (8.5-10.1) mg/dL Total Bilirubin 0.4 (0.2-1.0) mg/dL Direct Bilirubin 0.10 (0.0-0.5) mg/dL AST 107 H (15-37) IU/L ALT 155 H (14-63) IU/L Alkaline Phosphatase 82 (46-116) U/L Troponin I < 0.050 (0.000-0.056) ng/mL Total Protein 6.9 (6.4-8.2) g/dL Albumin 2.8 L (3.4-5.0) g/dL Globulin 4.1 H (2.6-4.0) g/dL Albumin/Globulin Ratio 0.7 L (0.9-1.6) SARS-CoV-2 RNA (ALEXANDER) POSITIVE H (NEGATIVE) 02/24/21 02/25/21 02/25/21 Range/Units 15:27 05:40 05:40 WBC 11.75 H 10.45 (4.0-11.0) K/uL RBC 4.53 4.45 (4.30-5.90) M/uL Hgb 14.7 14.1 (12.0-16.0) g/dL Hct 41.7 41.0 (36.0-46.0) % MCV 92.1 92.1 (80.0-98.0) fL MCH 32.5 H 31.7 (27.0-32.0) pg MCHC 35.3 34.4 (31.0-37.0) g/dL RDW Std Deviation 47.1 47.8 (28.0-62.0) fl RDW Coeff of Reji 14 14 (11.0-15.0) % Plt Count 226 258 (150-400) K/uL MPV 10.80 11.30 (7.40-12.00) fL Neut % (Auto) 90.8 H 88.2 H (48.0-80.0) % Lymph % (Auto) 7.7 L 8.9 L (16.0-40.0) % [place] % (Auto) 1.4 2.8 (0.0-15.0) % Eos % (Auto) 0.0 0.0 (0.0-7.0) % Baso % (Auto) 0.1 0.1 (0.0-1.5) % Neut # (Auto) 10.7 H 9.2 H (1.4-5.7) K/uL Lymph # (Auto) 0.9 0.9 (0.6-2.4) K/uL [place] # (Auto) 0.2 0.3 (0.0-0.8) K/uL Eos # (Auto) 0.0 0.0 (0.0-0.7) K/uL Baso # (Auto) 0.0 0.0 (0.0-0.1) K/uL Nucleated RBC % 0.0 0.0 /100WBC Nucleated RBCs # 0 0 K/uL Sodium 140 (136-145) mmol/L Potassium 4.4 (3.5-5.1) mmol/L Chloride 103 (98-107) mmol/L Carbon Dioxide 24.0 (21.0-32.0) mmol/L BUN 10 (7.0-18.0) mg/dL Creatinine 0.8 (0.6-1.0) mg/dL Est Cr Clr Drug Dosing 93.35 mL/min Estimated GFR (MDRD) > 60.0 ml/min Glucose 140 H (74-106) mg/dL Calcium 7.6 L (8.5-10.1) mg/dL Total Bilirubin 0.3 (0.2-1.0) mg/dL Direct Bilirubin (0.0-0.5) mg/dL AST 84 H (15-37) IU/L ALT 130 H (14-63) IU/L Alkaline Phosphatase 83 (46-116) U/L Troponin I (0.000-0.056) ng/mL Total Protein 6.6 (6.4-8.2) g/dL Albumin 2.6 L (3.4-5.0) g/dL Globulin 4.0 (2.6-4.0) g/dL Albumin/Globulin Ratio 0.7 L (0.9-1.6) SARS-CoV-2 RNA (ALEXANDER) (NEGATIVE) Tk Results Last 24 Hours: Microbiology 02/24/21 13:05 Influenza Type A Antigen Screen - Final Nasopharyngeal Swab NEGATIVE INFLUENZA A VIRUS AG REFERENCE RANGE: NEGATIVE Influenza Type B Antigen Screen - Final NEGATIVE INFLUENZA B VIRUS AG REFERENCE RANGE: NEGATIVE Med Orders - Current: Current Medications Acetaminophen (Acetaminophen 325 Mg Tab) 650 mg PO Q4H PRN PRN Reason: Pain (Mild 1-3)/fever Last Admin: 02/25/21 06:34 Dose: 650 mg Documented by: Albuterol/Ipratropium (Albuterol/Ipratropium 3.0-0.5 Mg/3 Ml Neb Soln) 3 ml NEB Q4HRRT PRN PRN Reason: Shortness Of Breath/wheezing Albuterol/Ipratropium (Albuterol/Ipratropium 4 Gm Inhalation [place]) 0 gm INH Q4HRRT [facility] Last Admin: 02/25/21 10:46 Dose: 1 puff Documented by: Bupropion HCl (Bupropion 150 Mg Tab.Er) 150 mg PO DAILY [facility] Last Admin: 02/25/21 08:51 Dose: 150 mg Documented by: Dexamethasone (Dexamethasone 4 Mg Tab) 6 mg PO DAILY [facility] Last Admin: 02/25/21 08:51 Dose: 6 mg Documented by: Enoxaparin Sodium (Enoxaparin 40 Mg/0.4 Ml Syringe) 40 mg SUBCUT Q24H [facility] Last Admin: 02/24/21 19:00 Dose: 40 mg Documented by: Guaifenesin/Codeine Phosphate (Codeine/Guaifenesin 10-100 Mg/5 Ml Syrup 5 Ml Cup) 5 ml PO Q4H PRN PRN Reason: Cough Last Admin: 02/25/21 09:56 Dose: 5 ml Documented by: Remdesivir 100 mg/ Sodium (Chloride) 100 mls @ 100 mls/hr IV Q24H [facility] Stop: 02/28/21 16:29 Norethindrone (Norethindrone 5 Mg Tab) 5 mg PO BID [facility] Last Admin: 02/25/21 09:56 Dose: 5 mg Documented by: Ondansetron HCl (Ondansetron 4 Mg/2 Ml Sdv) 4 mg IVPUSH Q4H PRN PRN Reason: Nausea/Vomiting Pantoprazole Sodium (Pantoprazole 40 Mg Vial) 40 mg IV DAILY [facility] Last Admin: 02/25/21 08:51 Dose: 40 mg Documented by: Oxybutynin 5 Mg Tab. (Er) 2 each PO DAILY [facility] Last Admin: 02/25/21 09:56 Dose: Not Given Documented by: Pregabalin (Pregabalin 50 Mg Cap) 100 mg PO TID [facility] Last Admin: 02/25/21 06:23 Dose: 100 mg Documented by: Tramadol HCl (Tramadol 50 Mg Tab) 50 mg PO BID PRN PRN Reason: Pain Last Admin: 02/25/21 08:52 Dose: 50 mg Documented by: Discontinued Medications Dexamethasone (Dexamethasone 10 Mg/Ml Sdv) 6 mg IVPUSH ONETIME ONE Stop: 02/24/21 14:40 Last Admin: 02/24/21 15:01 Dose: 6 mg Documented by: Dexamethasone (Dexamethasone 4 Mg Tab) 4 mg PO DAILY [facility] Guaifenesin/Codeine Phosphate (Codeine/Guaifenesin 10-100 Mg/5 Ml Syrup 5 Ml Cup) 10 ml PO ONETIME ONE Stop: 02/24/21 13:29 Last Admin: 02/24/21 13:45 Dose: 10 ml Documented by: Remdesivir 200 mg/ Sodium (Chloride) 250 mls @ 250 mls/hr IV ONETIME ONE Stop: 02/24/21 16:14 Last Admin: 02/24/21 15:35 Dose: 250 mls/hr Documented by: Sodium Chloride (Normal Saline) 1,000 mls @ 30 mls/hr IV STAT STA Stop: 02/26/21 00:52 Last Admin: 02/24/21 15:35 Dose: 30 mls/hr Documented by: Remdesivir 100 mg/ Sodium (Chloride) 100 mls @ 100 mls/hr IV Q24H [facility] Stop: 02/28/21 09:59 - Exam Quality Assessment: Supplemental Oxygen General: Alert, Oriented Neck: Supple, Trachea Midline Lungs: Normal Respiratory Effort, Decreased Breath Sounds, Crackles, Rales Cardiovascular: Regular Rate, Regular Rhythm GI/Abdominal Exam: Normal Bowel Sounds, Soft, Non-Tender Back Exam: Normal Inspection Extremities: Normal Inspection, Normal Range of Motion, No Pedal Edema - Patient Data Lab Results Last 24 hrs: Laboratory Results - last 24 hr 02/24/21 02/24/21 02/24/21 Range/Units 13:05 15:27 15:27 WBC (4.0-11.0) K/uL RBC (4.30-5.90) M/uL Hgb (12.0-16.0) g/dL Hct (36.0-46.0) % MCV (80.0-98.0) fL MCH (27.0-32.0) pg MCHC (31.0-37.0) g/dL RDW Std Deviation (28.0-62.0) fl RDW Coeff of Reji (11.0-15.0) % Plt Count (150-400) K/uL MPV (7.40-12.00) fL Neut % (Auto) (48.0-80.0) % Lymph % (Auto) (16.0-40.0) % [place] % (Auto) (0.0-15.0) % Eos % (Auto) (0.0-7.0) % Baso % (Auto) (0.0-1.5) % Neut # (Auto) (1.4-5.7) K/uL Lymph # (Auto) (0.6-2.4) K/uL [place] # (Auto) (0.0-0.8) K/uL Eos # (Auto) (0.0-0.7) K/uL Baso # (Auto) (0.0-0.1) K/uL Nucleated RBC % /100WBC Nucleated RBCs # K/uL Sodium 143 (136-145) mmol/L Potassium 3.7 (3.5-5.1) mmol/L Chloride 104 (98-107) mmol/L Carbon Dioxide 22.7 (21.0-32.0) mmol/L BUN 10 (7.0-18.0) mg/dL Creatinine 1.0 (0.6-1.0) mg/dL Est Cr Clr Drug Dosing 74.68 mL/min Estimated GFR (MDRD) > 60.0 ml/min Glucose 117 H (74-106) mg/dL Calcium 7.7 L (8.5-10.1) mg/dL Total Bilirubin 0.4 (0.2-1.0) mg/dL Direct Bilirubin 0.10 (0.0-0.5) mg/dL AST 107 H (15-37) IU/L ALT 155 H (14-63) IU/L Alkaline Phosphatase 82 (46-116) U/L Troponin I < 0.050 (0.000-0.056) ng/mL Total Protein 6.9 (6.4-8.2) g/dL Albumin 2.8 L (3.4-5.0) g/dL Globulin 4.1 H (2.6-4.0) g/dL Albumin/Globulin Ratio 0.7 L (0.9-1.6) SARS-CoV-2 RNA (ALEXANDER) POSITIVE H (NEGATIVE) 02/24/21 02/25/21 02/25/21 Range/Units 15:27 05:40 05:40 WBC 11.75 H 10.45 (4.0-11.0) K/uL RBC 4.53 4.45 (4.30-5.90) M/uL Hgb 14.7 14.1 (12.0-16.0) g/dL Hct 41.7 41.0 (36.0-46.0) % MCV 92.1 92.1 (80.0-98.0) fL MCH 32.5 H 31.7 (27.0-32.0) pg MCHC 35.3 34.4 (31.0-37.0) g/dL RDW Std Deviation 47.1 47.8 (28.0-62.0) fl RDW Coeff of Reji 14 14 (11.0-15.0) % Plt Count 226 258 (150-400) K/uL MPV 10.80 11.30 (7.40-12.00) fL Neut % (Auto) 90.8 H 88.2 H (48.0-80.0) % Lymph % (Auto) 7.7 L 8.9 L (16.0-40.0) % [place] % (Auto) 1.4 2.8 (0.0-15.0) % Eos % (Auto) 0.0 0.0 (0.0-7.0) % Baso % (Auto) 0.1 0.1 (0.0-1.5) % Neut # (Auto) 10.7 H 9.2 H (1.4-5.7) K/uL Lymph # (Auto) 0.9 0.9 (0.6-2.4) K/uL [place] # (Auto) 0.2 0.3 (0.0-0.8) K/uL Eos # (Auto) 0.0 0.0 (0.0-0.7) K/uL Baso # (Auto) 0.0 0.0 (0.0-0.1) K/uL Nucleated RBC % 0.0 0.0 /100WBC Nucleated RBCs # 0 0 K/uL Sodium 140 (136-145) mmol/L Potassium 4.4 (3.5-5.1) mmol/L Chloride 103 (98-107) mmol/L Carbon Dioxide 24.0 (21.0-32.0) mmol/L BUN 10 (7.0-18.0) mg/dL Creatinine 0.8 (0.6-1.0) mg/dL Est Cr Clr Drug Dosing 93.35 mL/min Estimated GFR (MDRD) > 60.0 ml/min Glucose 140 H (74-106) mg/dL Calcium 7.6 L (8.5-10.1) mg/dL Total Bilirubin 0.3 (0.2-1.0) mg/dL Direct Bilirubin (0.0-0.5) mg/dL AST 84 H (15-37) IU/L ALT 130 H (14-63) IU/L Alkaline Phosphatase 83 (46-116) U/L Troponin I (0.000-0.056) ng/mL Total Protein 6.6 (6.4-8.2) g/dL Albumin 2.6 L (3.4-5.0) g/dL Globulin 4.0 (2.6-4.0) g/dL Albumin/Globulin Ratio 0.7 L (0.9-1.6) SARS-CoV-2 RNA (ALEXANDER) (NEGATIVE) Result Diagrams: 02/25/21 05:40 02/25/21 05:40 Tk Results Last 24 hrs: Microbiology 02/24/21 13:05 Influenza Type A Antigen Screen - Final Nasopharyngeal Swab NEGATIVE INFLUENZA A VIRUS AG REFERENCE RANGE: NEGATIVE Influenza Type B Antigen Screen - Final NEGATIVE INFLUENZA B VIRUS AG REFERENCE RANGE: NEGATIVE Sepsis Event Note - Evaluation Sepsis Screening Result: No Definite Risk - Focused Exam Vital Signs: Vital Signs Temp Pulse Resp BP Pulse Ox 02/25/21 12:00 36.3 C 74 22 H 128/64 89 L 02/25/21 09:00 35.9 C L 68 115/61 90 L 02/25/21 03:55 36.4 C 72 19 115/62 92 L 02/25/21 01:50 90 L - Problem List & Annotations (1) Acute respiratory failure with hypoxia SNOMED Code(s): 54264751, 916439736 Code(s): J96.01 - ACUTE RESPIRATORY FAILURE WITH HYPOXIA Status: Acute Current Visit: Yes (2) Vocal cord dysfunction SNOMED Code(s): 119154148 Code(s): J38.3 - OTHER DISEASES OF VOCAL CORDS Status: Acute Current Visit: Yes (3) COVID-19 SNOMED Code(s): 521005766 Code(s): U07.1 - COVID-19 Status: Acute Current Visit: Yes (4) Hypoxemia SNOMED Code(s): 539416824 Code(s): R09.02 - HYPOXEMIA Status: Acute Current Visit: Yes (5) Acute viral syndrome SNOMED Code(s): 169720036 Code(s): B34.9 - VIRAL INFECTION, UNSPECIFIED Status: Acute Current Visit: No (6) Fibromyalgia SNOMED Code(s): 936307048 Code(s): M79.7 - FIBROMYALGIA Status: Chronic Current Visit: No - Problem List Review Problem List Initiated/Reviewed/Updated: Yes - My Orders Last 24 Hours: My Active Orders 02/24/21 Dinner Regular Diet [DIET] 02/24/21 18:00 Enoxaparin [Lovenox] 40 mg SUBCUT Q24H 02/24/21 18:27 Ambulate [RC] ASDIRECTED Oxygen Therapy [RC] PRN VTE/DVT Education [RC] PER UNIT ROUTINE Vital Signs [RC] Q4H Acetaminophen [TylenoL] 650 mg PO Q4H PRN Albuterol/Ipratropium [DuoNeb 3.0-0.5 MG/3 ML] 3 ml NEB Q4HRRT PRN Ondansetron [Zofran] 4 mg IVPUSH Q4H PRN Resuscitation Status Routine 02/24/21 18:28 Pulse Oximetry [RC] PRN Sequential Compression Device [OM.PC] Per Unit Routine 02/24/21 18:29 Antiembolic Devices [RC] PER UNIT ROUTINE RT Aerosol Therapy [RC] ASDIRECTED 02/24/21 18:32 Codeine/guaiFENesin [Robitussin AC] 5 ml PO Q4H PRN 02/24/21 18:33 RT Post Treatment Assessment [RC] Click to Edit RT Pre-Treatment Assessment [RC] Click to Edit 02/24/21 18:36 traMADol [Ultram] 50 mg PO BID PRN 02/24/21 18:45 Albuterol/Ipratropium [Combivent Respimat] See Dose Instructions INH Q4HRRT 02/24/21 21:00 Norethindrone [Aygestin] 5 mg PO BID 02/24/21 22:00 Pregabalin [Lyrica] 100 mg PO TID 02/25/21 09:00 Pantoprazole [ProTONIX IV] 40 mg IV DAILY Patient's Own Medication [Ptom] 2 each PO DAILY buPROPion [Wellbutrin XL] 150 mg PO DAILY dexAMETHasone 6 mg PO DAILY 02/25/21 15:30 Remdesivir 100 mg Sodium Chloride 0.9% [Normal Saline] 100 ml IV Q24H - Plan Plan:: 40 y/o F admitted for Acute hypoxic resp failure due to covid 19 Continue oxygenation via nasal cannula currently needing 3 L cont remdesivir cont dexamethasone DuoNEbs as needed Combivent q4h [facility] Lovenox daily for dvt ppx Robitussin for cough Encourage IS and proning cont supportive care resume home meds as appropriate
[2021-02-25] MEDS: REMDESIVIR 100 MG in Sodium Chloride 0.9% 100 ML IV SCH (15:40)
[2021-02-25] MEDS: OXYBUTYNIN 10 MG PO SCH (15:40)
[2021-02-25] MEDS: Enoxaparin 40 MG/0.4 ML Syringe SUBCUT SCH (17:34)
[2021-02-26] MEDS: Albuterol/Ipratropium 4 GM Inhalation Spray INH SCH ×6 (01:51→22:13)
[2021-02-26] MEDS: Pregabalin 50 MG Cap PO SCH ×3 (05:07→22:12)
[2021-02-26] MEDS: Codeine/guaiFENesin 10-100 MG/5 ML Syrup 5 ML Cup PO PRN ×4 (05:14→22:16)
[2021-02-26 07:04] LABS: BLOOD UREA NITROGEN,BUN 14 mg/dL (7.0-18.0); CHLORIDE,CL 104 mmol/L (98-107); GLUCOSE RANDOM 194 mg/dL (74-106); POTASSIUM,K 4.1 mmol/L (3.5-5.1); SODIUM,NA 141 mmol/L (136-145)
[2021-02-26] MEDS: traMADol 50 MG Tab PO PRN (08:44)
[2021-02-26] MEDS: Pantoprazole 40 MG Vial IV SCH (08:45)
[2021-02-26] MEDS: buPROPion 150 MG Tab.ER PO SCH (08:45)
[2021-02-26] MEDS: OXYBUTYNIN 10 MG PO SCH (08:45)
[2021-02-26] MEDS: Dexamethasone 4 MG Tab PO SCH (08:45)
--- NOTE | 2021-02-26 13:30 | PCM.PN ---
- General Info Date of Service: 02/26/21 - Review of Systems Systems Review Comment:: reports productive cough, shortness of breath - Patient Data Vitals - Most Recent: Last Vital Signs Temp 36.8 C 02/26/21 11:59 Pulse 69 02/26/21 11:59 Resp 24 H 02/26/21 11:59 BP 130/77 02/26/21 11:59 Pulse Ox 92 L 02/26/21 11:59 Weight - Most Recent: 105.007 kg I&O - Last 24 Hours: Intake & Output 02/25/21 02/26/21 02/26/21 22:59 06:59 14:59 Intake Total 1200 650 Output Total 1600 800 Balance -400 -150 Lab Results Last 24 Hours: Laboratory Results - last 24 hr 02/26/21 02/26/21 Range/Units 05:48 05:48 WBC 10.87 (4.0-11.0) K/uL RBC 4.23 L (4.30-5.90) M/uL Hgb 13.6 (12.0-16.0) g/dL Hct 39.1 (36.0-46.0) % MCV 92.4 (80.0-98.0) fL MCH 32.2 H (27.0-32.0) pg MCHC 34.8 (31.0-37.0) g/dL RDW Std Deviation 48.5 (28.0-62.0) fl RDW Coeff of Reji 14 (11.0-15.0) % Plt Count 329 (150-400) K/uL MPV 11.40 (7.40-12.00) fL Add Manual Diff YES Neutrophils % (Manual) 82 H (48.0-80.0) % Band Neutrophils % 5 % Lymphocytes % (Manual) 6 L (16.0-40.0) % Monocytes % (Manual) 7 (0.0-15.0) % Nucleated RBC % 0.0 /100WBC Absolute Seg Neuts 8.9 H (1.4-5.7) Band Neutrophils # 0.5 Lymphocytes # (Manual) 0.7 (0.6-2.4) Monocytes # (Manual) 0.8 (0.0-0.8) Nucleated RBCs # 0 K/uL Sodium 141 (136-145) mmol/L Potassium 4.1 (3.5-5.1) mmol/L Chloride 104 (98-107) mmol/L Carbon Dioxide 26.0 (21.0-32.0) mmol/L BUN 14 (7.0-18.0) mg/dL Creatinine 0.7 (0.6-1.0) mg/dL Est Cr Clr Drug Dosing 106.69 mL/min Estimated GFR (MDRD) > 60.0 ml/min Glucose 194 H (74-106) mg/dL Calcium 7.6 L (8.5-10.1) mg/dL Phosphorus 2.8 (2.6-4.7) mg/dL Magnesium 2.3 (1.8-2.4) mg/dL Total Bilirubin 0.3 (0.2-1.0) mg/dL AST 46 H (15-37) IU/L ALT 94 H (14-63) IU/L Alkaline Phosphatase 78 (46-116) U/L Total Protein 6.3 L (6.4-8.2) g/dL Albumin 2.5 L (3.4-5.0) g/dL Globulin 3.8 (2.6-4.0) g/dL Albumin/Globulin Ratio 0.7 L (0.9-1.6) Med Orders - Current: Current Medications Acetaminophen (Acetaminophen 325 Mg Tab) 650 mg PO Q4H PRN PRN Reason: Pain (Mild 1-3)/fever Last Admin: 02/25/21 21:19 Dose: 650 mg Documented by: Albuterol/Ipratropium (Albuterol/Ipratropium 3.0-0.5 Mg/3 Ml Neb Soln) 3 ml NEB Q4HRRT PRN PRN Reason: Shortness Of Breath/wheezing Albuterol/Ipratropium (Albuterol/Ipratropium 4 Gm Inhalation [place]) 0 gm INH Q4HRRT [facility] Last Admin: 02/26/21 09:46 Dose: 1 puff Documented by: Bupropion HCl (Bupropion 150 Mg Tab.Er) 150 mg PO DAILY [facility] Last Admin: 02/26/21 08:45 Dose: 150 mg Documented by: Dexamethasone (Dexamethasone 4 Mg Tab) 6 mg PO DAILY [facility] Last Admin: 02/26/21 08:45 Dose: 6 mg Documented by: Enoxaparin Sodium (Enoxaparin 40 Mg/0.4 Ml Syringe) 40 mg SUBCUT Q24H [facility] Last Admin: 02/25/21 17:34 Dose: 40 mg Documented by: Guaifenesin/Codeine Phosphate (Codeine/Guaifenesin 10-100 Mg/5 Ml Syrup 5 Ml Cup) 5 ml PO Q4H PRN PRN Reason: Cough Last Admin: 02/26/21 09:46 Dose: 5 ml Documented by: Remdesivir 100 mg/ Sodium (Chloride) 100 mls @ 100 mls/hr IV Q24H [facility] Stop: 02/28/21 16:29 Last Admin: 02/25/21 15:40 Dose: 100 mls/hr Documented by: Norethindrone (Norethindrone 5 Mg Tab) 5 mg PO BID [facility] Last Admin: 02/26/21 09:46 Dose: 5 mg Documented by: Ondansetron HCl (Ondansetron 4 Mg/2 Ml Sdv) 4 mg IVPUSH Q4H PRN PRN Reason: Nausea/Vomiting Pantoprazole Sodium (Pantoprazole 40 Mg Vial) 40 mg IV DAILY [facility] Last Admin: 02/26/21 08:45 Dose: 40 mg Documented by: Oxybutynin 10 Mg Tab (.Er) 1 each PO DAILY [facility] Last Admin: 02/26/21 08:45 Dose: 1 each Documented by: Pregabalin (Pregabalin 50 Mg Cap) 100 mg PO TID [facility] Last Admin: 02/26/21 05:07 Dose: 100 mg Documented by: Tramadol HCl (Tramadol 50 Mg Tab) 50 mg PO BID PRN PRN Reason: Pain Last Admin: 02/26/21 08:44 Dose: 50 mg Documented by: Discontinued Medications Dexamethasone (Dexamethasone 10 Mg/Ml Sdv) 6 mg IVPUSH ONETIME ONE Stop: 02/24/21 14:40 Last Admin: 02/24/21 15:01 Dose: 6 mg Documented by: Dexamethasone (Dexamethasone 4 Mg Tab) 4 mg PO DAILY [facility] Guaifenesin/Codeine Phosphate (Codeine/Guaifenesin 10-100 Mg/5 Ml Syrup 5 Ml Cup) 10 ml PO ONETIME ONE Stop: 02/24/21 13:29 Last Admin: 02/24/21 13:45 Dose: 10 ml Documented by: Remdesivir 200 mg/ Sodium (Chloride) 250 mls @ 250 mls/hr IV ONETIME ONE Stop: 02/24/21 16:14 Last Admin: 02/24/21 15:35 Dose: 250 mls/hr Documented by: Sodium Chloride (Normal Saline) 1,000 mls @ 30 mls/hr IV STAT [facility] Stop: 02/26/21 00:52 Last Admin: 02/24/21 15:35 Dose: 30 mls/hr Documented by: Remdesivir 100 mg/ Sodium (Chloride) 100 mls @ 100 mls/hr IV Q24H [facility] Stop: 02/28/21 09:59 Oxybutynin 5 Mg Tab. (Er) 2 each PO DAILY [facility] Last Admin: 02/25/21 09:56 Dose: Not Given Documented by: - Exam General: Alert, Oriented Lungs: Normal Respiratory Effort, Rhonchi Cardiovascular: Regular Rate, Regular Rhythm GI/Abdominal Exam: Soft, Non-Tender, No Distention Extremities: Non-Tender, No Pedal Edema Skin: Warm, Dry, Intact Neurological: No New Focal Deficit - Patient Data Lab Results Last 24 hrs: Laboratory Results - last 24 hr 02/26/21 02/26/21 Range/Units 05:48 05:48 WBC 10.87 (4.0-11.0) K/uL RBC 4.23 L (4.30-5.90) M/uL Hgb 13.6 (12.0-16.0) g/dL Hct 39.1 (36.0-46.0) % MCV 92.4 (80.0-98.0) fL MCH 32.2 H (27.0-32.0) pg MCHC 34.8 (31.0-37.0) g/dL RDW Std Deviation 48.5 (28.0-62.0) fl RDW Coeff of Reji 14 (11.0-15.0) % Plt Count 329 (150-400) K/uL MPV 11.40 (7.40-12.00) fL Add Manual Diff YES Neutrophils % (Manual) 82 H (48.0-80.0) % Band Neutrophils % 5 % Lymphocytes % (Manual) 6 L (16.0-40.0) % Monocytes % (Manual) 7 (0.0-15.0) % Nucleated RBC % 0.0 /100WBC Absolute Seg Neuts 8.9 H (1.4-5.7) Band Neutrophils # 0.5 Lymphocytes # (Manual) 0.7 (0.6-2.4) Monocytes # (Manual) 0.8 (0.0-0.8) Nucleated RBCs # 0 K/uL Sodium 141 (136-145) mmol/L Potassium 4.1 (3.5-5.1) mmol/L Chloride 104 (98-107) mmol/L Carbon Dioxide 26.0 (21.0-32.0) mmol/L BUN 14 (7.0-18.0) mg/dL Creatinine 0.7 (0.6-1.0) mg/dL Est Cr Clr Drug Dosing 106.69 mL/min Estimated GFR (MDRD) > 60.0 ml/min Glucose 194 H (74-106) mg/dL Calcium 7.6 L (8.5-10.1) mg/dL Phosphorus 2.8 (2.6-4.7) mg/dL Magnesium 2.3 (1.8-2.4) mg/dL Total Bilirubin 0.3 (0.2-1.0) mg/dL AST 46 H (15-37) IU/L ALT 94 H (14-63) IU/L Alkaline Phosphatase 78 (46-116) U/L Total Protein 6.3 L (6.4-8.2) g/dL Albumin 2.5 L (3.4-5.0) g/dL Globulin 3.8 (2.6-4.0) g/dL Albumin/Globulin Ratio 0.7 L (0.9-1.6) Result Diagrams: 02/26/21 05:48 02/26/21 05:48 Sepsis Event Note - Evaluation Sepsis Screening Result: No Definite Risk - Focused Exam Vital Signs: Vital Signs Temp Pulse Resp BP Pulse Ox 02/26/21 11:59 36.8 C 69 24 H 130/77 92 L 02/26/21 10:00 20 93 L 02/26/21 08:41 36.2 C 72 24 H 131/59 L 90 L 02/26/21 05:00 36.3 C 67 21 H 116/64 89 L - Problem List & Annotations (1) Acute respiratory failure with hypoxia SNOMED Code(s): 44825362, 190353485 Code(s): J96.01 - ACUTE RESPIRATORY FAILURE WITH HYPOXIA Status: Acute Current Visit: Yes (2) COVID-19 SNOMED Code(s): 802763115 Code(s): U07.1 - COVID-19 Status: Acute Current Visit: Yes - Problem List Review Problem List Initiated/Reviewed/Updated: Yes - My Orders Last 24 Hours: My Active Orders 02/26/21 13:27 Benzonatate [Tessalon Perles] 100 mg PO Q6H PRN 02/27/21 05:11 CBC WITH AUTO DIFF [HEME] AM COMPREHENSIVE METABOLIC PN,CMP [CHEM] AM 02/28/21 05:11 CBC WITH AUTO DIFF [HEME] AM COMPREHENSIVE METABOLIC PN,CMP [CHEM] AM 03/01/21 05:11 CBC WITH AUTO DIFF [HEME] AM COMPREHENSIVE METABOLIC PN,CMP [CHEM] AM 03/02/21 05:11 CBC WITH AUTO DIFF [HEME] AM COMPREHENSIVE METABOLIC PN,CMP [CHEM] AM - Plan Plan:: 40 y/o F admitted for Acute hypoxic resp failure due to covid 19 Hypoxia:Continue oxygenation via nasal cannula currently needing 5 L COVID: continue remdesivir and dexamethasone lovenox for DVT prophylaxis
[2021-02-26] MEDS: Benzonatate 100 MG Cap PO PRN (15:39)
[2021-02-26] MEDS: REMDESIVIR 100 MG in Sodium Chloride 0.9% 100 ML IV SCH (15:39)
[2021-02-26] MEDS: Enoxaparin 40 MG/0.4 ML Syringe SUBCUT SCH (17:01)
[2021-02-27] MEDS: Benzonatate 100 MG Cap PO PRN ×3 (01:35→20:06)
[2021-02-27] MEDS: Albuterol/Ipratropium 4 GM Inhalation Spray INH SCH ×6 (01:35→22:40)
[2021-02-27] MEDS: Pregabalin 50 MG Cap PO SCH ×3 (06:04→22:40)
[2021-02-27 06:45] LABS: BLOOD UREA NITROGEN,BUN 11 mg/dL (7.0-18.0); CARBON DIOXIDE,CO2 23.9 mmol/L (21.0-32.0); CHLORIDE,CL 104 mmol/L (98-107); GLUCOSE RANDOM 177 mg/dL (74-106); POTASSIUM,K 4.2 mmol/L (3.5-5.1); SODIUM,NA 142 mmol/L (136-145)
[2021-02-27] MEDS: Pantoprazole 40 MG Vial IV SCH (09:01)
[2021-02-27] MEDS: Dexamethasone 4 MG Tab PO SCH (09:01)
[2021-02-27] MEDS: buPROPion 150 MG Tab.ER PO SCH (09:02)
[2021-02-27] MEDS: OXYBUTYNIN 10 MG PO SCH (09:06)
[2021-02-27] MEDS: Codeine/guaiFENesin 10-100 MG/5 ML Syrup 5 ML Cup PO PRN ×4 (09:14→22:40)
--- NOTE | 2021-02-27 13:13 | PCM.PN ---
- General Info Date of Service: 02/27/21 - Review of Systems Systems Review Comment:: feeling better, reports cough - Patient Data Vitals - Most Recent: Last Vital Signs Temp 36.7 C 02/27/21 08:00 Pulse 60 02/27/21 08:00 Resp 20 02/27/21 08:00 BP 123/70 02/27/21 08:00 Pulse Ox 91 L 02/27/21 08:00 Weight - Most Recent: 105.007 kg I&O - Last 24 Hours: Intake & Output 02/26/21 02/27/21 02/27/21 22:59 06:59 14:59 Intake Total 1350 600 Output Total 900 600 Balance 450 0 Lab Results Last 24 Hours: Laboratory Results - last 24 hr 02/27/21 02/27/21 Range/Units 05:34 05:34 WBC 9.99 (4.0-11.0) K/uL RBC 4.10 L (4.30-5.90) M/uL Hgb 12.9 (12.0-16.0) g/dL Hct 38.2 (36.0-46.0) % MCV 93.2 (80.0-98.0) fL MCH 31.5 (27.0-32.0) pg MCHC 33.8 (31.0-37.0) g/dL RDW Std Deviation 49.8 (28.0-62.0) fl RDW Coeff of Reji 15 (11.0-15.0) % Plt Count 377 (150-400) K/uL MPV 11.10 (7.40-12.00) fL Add Manual Diff YES Neutrophils % (Manual) 59 (48.0-80.0) % Band Neutrophils % 4 % Lymphocytes % (Manual) 32 (16.0-40.0) % Monocytes % (Manual) 5 (0.0-15.0) % Nucleated RBC % 0.0 /100WBC Absolute Seg Neuts 5.9 H (1.4-5.7) Band Neutrophils # 0.4 Lymphocytes # (Manual) 3.2 H (0.6-2.4) Monocytes # (Manual) 0.5 (0.0-0.8) Nucleated RBCs # 0 K/uL Sodium 142 (136-145) mmol/L Potassium 4.2 (3.5-5.1) mmol/L Chloride 104 (98-107) mmol/L Carbon Dioxide 23.9 (21.0-32.0) mmol/L BUN 11 (7.0-18.0) mg/dL Creatinine 0.7 (0.6-1.0) mg/dL Est Cr Clr Drug Dosing 106.69 mL/min Estimated GFR (MDRD) > 60.0 ml/min Glucose 177 H (74-106) mg/dL Calcium 7.5 L (8.5-10.1) mg/dL Total Bilirubin 0.4 (0.2-1.0) mg/dL AST 45 H (15-37) IU/L ALT 84 H (14-63) IU/L Alkaline Phosphatase 69 (46-116) U/L Total Protein 6.1 L (6.4-8.2) g/dL Albumin 2.4 L (3.4-5.0) g/dL Globulin 3.7 (2.6-4.0) g/dL Albumin/Globulin Ratio 0.7 L (0.9-1.6) Med Orders - Current: Current Medications Acetaminophen (Acetaminophen 325 Mg Tab) 650 mg PO Q4H PRN PRN Reason: Pain (Mild 1-3)/fever Last Admin: 02/25/21 21:19 Dose: 650 mg Documented by: Albuterol/Ipratropium (Albuterol/Ipratropium 3.0-0.5 Mg/3 Ml Neb Soln) 3 ml NEB Q4HRRT PRN PRN Reason: Shortness Of Breath/wheezing Albuterol/Ipratropium (Albuterol/Ipratropium 4 Gm Inhalation [place]) 0 gm INH Q4HRRT [facility] Last Admin: 02/27/21 10:19 Dose: 1 puff Documented by: Benzonatate (Benzonatate 100 Mg Cap) 100 mg PO Q6H PRN PRN Reason: Cough Last Admin: 02/27/21 01:35 Dose: 100 mg Documented by: Bupropion HCl (Bupropion 150 Mg Tab.Er) 150 mg PO DAILY [facility] Last Admin: 02/27/21 09:02 Dose: 150 mg Documented by: Dexamethasone (Dexamethasone 4 Mg Tab) 6 mg PO DAILY [facility] Last Admin: 02/27/21 09:01 Dose: 6 mg Documented by: Enoxaparin Sodium (Enoxaparin 40 Mg/0.4 Ml Syringe) 40 mg SUBCUT Q24H [facility] Last Admin: 02/26/21 17:01 Dose: 40 mg Documented by: Guaifenesin/Codeine Phosphate (Codeine/Guaifenesin 10-100 Mg/5 Ml Syrup 5 Ml Cup) 5 ml PO Q4H PRN PRN Reason: Cough Last Admin: 02/27/21 09:14 Dose: 5 ml Documented by: Remdesivir 100 mg/ Sodium (Chloride) 100 mls @ 100 mls/hr IV Q24H [facility] Stop: 02/28/21 16:29 Last Admin: 02/26/21 15:39 Dose: 100 mls/hr Documented by: Norethindrone (Norethindrone 5 Mg Tab) 5 mg PO BID [facility] Last Admin: 02/27/21 10:40 Dose: 5 mg Documented by: Ondansetron HCl (Ondansetron 4 Mg/2 Ml Sdv) 4 mg IVPUSH Q4H PRN PRN Reason: Nausea/Vomiting Pantoprazole Sodium (Pantoprazole 40 Mg Vial) 40 mg IV DAILY [facility] Last Admin: 02/27/21 09:01 Dose: 40 mg Documented by: Oxybutynin 10 Mg Tab (.Er) 1 each PO DAILY [facility] Last Admin: 02/27/21 09:06 Dose: 1 each Documented by: Pregabalin (Pregabalin 50 Mg Cap) 100 mg PO TID [facility] Last Admin: 02/27/21 06:04 Dose: 100 mg Documented by: Tramadol HCl (Tramadol 50 Mg Tab) 50 mg PO BID PRN PRN Reason: Pain Last Admin: 02/26/21 08:44 Dose: 50 mg Documented by: Discontinued Medications Dexamethasone (Dexamethasone 10 Mg/Ml Sdv) 6 mg IVPUSH ONETIME ONE Stop: 02/24/21 14:40 Last Admin: 02/24/21 15:01 Dose: 6 mg Documented by: Dexamethasone (Dexamethasone 4 Mg Tab) 4 mg PO DAILY [facility] Guaifenesin/Codeine Phosphate (Codeine/Guaifenesin 10-100 Mg/5 Ml Syrup 5 Ml Cup) 10 ml PO ONETIME ONE Stop: 02/24/21 13:29 Last Admin: 02/24/21 13:45 Dose: 10 ml Documented by: Remdesivir 200 mg/ Sodium (Chloride) 250 mls @ 250 mls/hr IV ONETIME ONE Stop: 02/24/21 16:14 Last Admin: 02/24/21 15:35 Dose: 250 mls/hr Documented by: Sodium Chloride (Normal Saline) 1,000 mls @ 30 mls/hr IV STAT [facility] Stop: 02/26/21 00:52 Last Admin: 02/24/21 15:35 Dose: 30 mls/hr Documented by: Remdesivir 100 mg/ Sodium (Chloride) 100 mls @ 100 mls/hr IV Q24H [facility] Stop: 02/28/21 09:59 Oxybutynin 5 Mg Tab. (Er) 2 each PO DAILY [facility] Last Admin: 02/25/21 09:56 Dose: Not Given Documented by: - Exam General: Alert, Oriented Neck: Supple Lungs: Clear to Auscultation, Normal Respiratory Effort Cardiovascular: Regular Rate, Regular Rhythm GI/Abdominal Exam: Soft, Non-Tender, No Distention Extremities: Non-Tender, No Pedal Edema Skin: Warm, Dry, Intact Neurological: No New Focal Deficit - Patient Data Lab Results Last 24 hrs: Laboratory Results - last 24 hr 02/27/21 02/27/21 Range/Units 05:34 05:34 WBC 9.99 (4.0-11.0) K/uL RBC 4.10 L (4.30-5.90) M/uL Hgb 12.9 (12.0-16.0) g/dL Hct 38.2 (36.0-46.0) % MCV 93.2 (80.0-98.0) fL MCH 31.5 (27.0-32.0) pg MCHC 33.8 (31.0-37.0) g/dL RDW Std Deviation 49.8 (28.0-62.0) fl RDW Coeff of Reji 15 (11.0-15.0) % Plt Count 377 (150-400) K/uL MPV 11.10 (7.40-12.00) fL Add Manual Diff YES Neutrophils % (Manual) 59 (48.0-80.0) % Band Neutrophils % 4 % Lymphocytes % (Manual) 32 (16.0-40.0) % Monocytes % (Manual) 5 (0.0-15.0) % Nucleated RBC % 0.0 /100WBC Absolute Seg Neuts 5.9 H (1.4-5.7) Band Neutrophils # 0.4 Lymphocytes # (Manual) 3.2 H (0.6-2.4) Monocytes # (Manual) 0.5 (0.0-0.8) Nucleated RBCs # 0 K/uL Sodium 142 (136-145) mmol/L Potassium 4.2 (3.5-5.1) mmol/L Chloride 104 (98-107) mmol/L Carbon Dioxide 23.9 (21.0-32.0) mmol/L BUN 11 (7.0-18.0) mg/dL Creatinine 0.7 (0.6-1.0) mg/dL Est Cr Clr Drug Dosing 106.69 mL/min Estimated GFR (MDRD) > 60.0 ml/min Glucose 177 H (74-106) mg/dL Calcium 7.5 L (8.5-10.1) mg/dL Total Bilirubin 0.4 (0.2-1.0) mg/dL AST 45 H (15-37) IU/L ALT 84 H (14-63) IU/L Alkaline Phosphatase 69 (46-116) U/L Total Protein 6.1 L (6.4-8.2) g/dL Albumin 2.4 L (3.4-5.0) g/dL Globulin 3.7 (2.6-4.0) g/dL Albumin/Globulin Ratio 0.7 L (0.9-1.6) Result Diagrams: 02/27/21 05:34 02/27/21 05:34 Sepsis Event Note - Evaluation Sepsis Screening Result: No Definite Risk - Focused Exam Vital Signs: Vital Signs Temp Pulse Resp BP Pulse Ox 02/27/21 08:00 36.7 C 60 20 123/70 91 L 02/27/21 04:05 94 L 02/27/21 04:00 36.4 C 57 L 18 133/61 95 02/27/21 02:00 91 L - Problem List & Annotations (1) Acute respiratory failure with hypoxia SNOMED Code(s): 24144220, 891348303 Code(s): J96.01 - ACUTE RESPIRATORY FAILURE WITH HYPOXIA Status: Acute Current Visit: Yes (2) COVID-19 SNOMED Code(s): 421925976 Code(s): U07.1 - COVID-19 Status: Acute Current Visit: Yes - Problem List Review Problem List Initiated/Reviewed/Updated: Yes - My Orders Last 24 Hours: My Active Orders 02/26/21 13:27 Benzonatate [Tessalon Perles] 100 mg PO Q6H PRN 02/28/21 05:11 CBC WITH AUTO DIFF [HEME] AM COMPREHENSIVE METABOLIC PN,CMP [CHEM] AM 03/01/21 05:11 CBC WITH AUTO DIFF [HEME] AM COMPREHENSIVE METABOLIC PN,CMP [CHEM] AM 03/02/21 05:11 CBC WITH AUTO DIFF [HEME] AM COMPREHENSIVE METABOLIC PN,CMP [CHEM] AM - Plan Plan:: 40 y/o F admitted for Acute hypoxic resp failure due to covid 19 Hypoxia:Continue oxygenation via nasal cannula currently needing 2.5 L COVID: continue remdesivir and dexamethasone lovenox for DVT prophylaxis
[2021-02-27] MEDS: REMDESIVIR 100 MG in Sodium Chloride 0.9% 100 ML IV SCH (15:37)
[2021-02-27] MEDS: Enoxaparin 40 MG/0.4 ML Syringe SUBCUT SCH (20:04)
[2021-02-28] MEDS: Benzonatate 100 MG Cap PO PRN ×3 (02:13→17:59)
[2021-02-28] MEDS: Albuterol/Ipratropium 4 GM Inhalation Spray INH SCH ×6 (02:13→21:59)
[2021-02-28] MEDS: Codeine/guaiFENesin 10-100 MG/5 ML Syrup 5 ML Cup PO PRN ×4 (03:55→20:55)
[2021-02-28] MEDS: Pregabalin 50 MG Cap PO SCH ×3 (06:06→21:56)
[2021-02-28 08:09] LABS: BLOOD UREA NITROGEN,BUN 11 mg/dL (7.0-18.0); CARBON DIOXIDE,CO2 26.8 mmol/L (21.0-32.0); CHLORIDE,CL 103 mmol/L (98-107); GLUCOSE RANDOM 213 mg/dL (74-106); POTASSIUM,K 3.7 mmol/L (3.5-5.1); SODIUM,NA 139 mmol/L (136-145)
[2021-02-28] MEDS ORDERED: Oxybutynin 5 MG Tab ONE (08:26)
[2021-02-28] MEDS: Dexamethasone 4 MG Tab PO SCH (09:06)
[2021-02-28] MEDS: buPROPion 150 MG Tab.ER PO SCH (09:06)
[2021-02-28] MEDS: Pantoprazole 40 MG Vial IV SCH (09:07)
[2021-02-28] MEDS: OXYBUTYNIN 10 MG PO SCH (09:07)
--- NOTE | 2021-02-28 14:26 | PCM.PN ---
- General Info Date of Service: 02/28/21 - Review of Systems Systems Review Comment:: feeling better, coughing is better - Patient Data Vitals - Most Recent: Last Vital Signs Temp 36.7 C 02/28/21 11:00 Pulse 62 02/28/21 11:00 Resp 18 02/28/21 11:00 BP 124/76 02/28/21 11:00 Pulse Ox 94 L 02/28/21 11:00 Weight - Most Recent: 105.007 kg I&O - Last 24 Hours: Intake & Output 02/27/21 02/28/21 02/28/21 22:59 06:59 14:59 Intake Total 800 Output Total 1500 Balance -700 Lab Results Last 24 Hours: Laboratory Results - last 24 hr 02/28/21 02/28/21 Range/Units 06:59 06:59 WBC 10.85 (4.0-11.0) K/uL RBC 4.11 L (4.30-5.90) M/uL Hgb 13.1 (12.0-16.0) g/dL Hct 38.4 (36.0-46.0) % MCV 93.4 (80.0-98.0) fL MCH 31.9 (27.0-32.0) pg MCHC 34.1 (31.0-37.0) g/dL RDW Std Deviation 48.3 (28.0-62.0) fl RDW Coeff of Reji 14 (11.0-15.0) % Plt Count 406 H (150-400) K/uL MPV 11.60 (7.40-12.00) fL Add Manual Diff YES Neutrophils % (Manual) 71 (48.0-80.0) % Band Neutrophils % 3 % Lymphocytes % (Manual) 18 (16.0-40.0) % Monocytes % (Manual) 8 (0.0-15.0) % Nucleated RBC % 0.0 /100WBC Absolute Seg Neuts 7.7 H (1.4-5.7) Band Neutrophils # 0.3 Lymphocytes # (Manual) 2.0 (0.6-2.4) Monocytes # (Manual) 0.9 H (0.0-0.8) Nucleated RBCs # 0 K/uL Sodium 139 (136-145) mmol/L Potassium 3.7 (3.5-5.1) mmol/L Chloride 103 (98-107) mmol/L Carbon Dioxide 26.8 (21.0-32.0) mmol/L BUN 11 (7.0-18.0) mg/dL Creatinine 0.7 (0.6-1.0) mg/dL Est Cr Clr Drug Dosing 106.69 mL/min Estimated GFR (MDRD) > 60.0 ml/min Glucose 213 H (74-106) mg/dL Calcium 7.7 L (8.5-10.1) mg/dL Total Bilirubin 0.4 (0.2-1.0) mg/dL AST 33 (15-37) IU/L ALT 83 H (14-63) IU/L Alkaline Phosphatase 65 (46-116) U/L Total Protein 6.6 (6.4-8.2) g/dL Albumin 2.3 L (3.4-5.0) g/dL Globulin 4.3 H (2.6-4.0) g/dL Albumin/Globulin Ratio 0.5 L (0.9-1.6) Med Orders - Current: Current Medications Acetaminophen (Acetaminophen 325 Mg Tab) 650 mg PO Q4H PRN PRN Reason: Pain (Mild 1-3)/fever Last Admin: 02/25/21 21:19 Dose: 650 mg Documented by: Albuterol/Ipratropium (Albuterol/Ipratropium 3.0-0.5 Mg/3 Ml Neb Soln) 3 ml NEB Q4HRRT PRN PRN Reason: Shortness Of Breath/wheezing Albuterol/Ipratropium (Albuterol/Ipratropium 4 Gm Inhalation [place]) 0 gm INH Q4HRRT [facility] Last Admin: 02/28/21 13:35 Dose: 1 puff Documented by: Benzonatate (Benzonatate 100 Mg Cap) 100 mg PO Q6H PRN PRN Reason: Cough Last Admin: 02/28/21 09:04 Dose: 100 mg Documented by: Bupropion HCl (Bupropion 150 Mg Tab.Er) 150 mg PO DAILY [facility] Last Admin: 02/28/21 09:06 Dose: 150 mg Documented by: Dexamethasone (Dexamethasone 4 Mg Tab) 6 mg PO DAILY [facility] Last Admin: 02/28/21 09:06 Dose: 6 mg Documented by: Enoxaparin Sodium (Enoxaparin 40 Mg/0.4 Ml Syringe) 40 mg SUBCUT Q24H [facility] Last Admin: 02/27/21 20:04 Dose: 40 mg Documented by: Guaifenesin/Codeine Phosphate (Codeine/Guaifenesin 10-100 Mg/5 Ml Syrup 5 Ml Cup) 5 ml PO Q4H PRN PRN Reason: Cough Last Admin: 02/28/21 14:09 Dose: 5 ml Documented by: Remdesivir 100 mg/ Sodium (Chloride) 100 mls @ 100 mls/hr IV Q24H [facility] Stop: 02/28/21 16:29 Last Admin: 02/27/21 15:37 Dose: 100 mls/hr Documented by: Norethindrone (Norethindrone 5 Mg Tab) 5 mg PO BID [facility] Last Admin: 02/28/21 09:07 Dose: 5 mg Documented by: Ondansetron HCl (Ondansetron 4 Mg/2 Ml Sdv) 4 mg IVPUSH Q4H PRN PRN Reason: Nausea/Vomiting Pantoprazole Sodium (Pantoprazole 40 Mg Vial) 40 mg IV DAILY [facility] Last Admin: 02/28/21 09:07 Dose: 40 mg Documented by: Oxybutynin 10 Mg Tab (.Er) 1 each PO DAILY [facility] Last Admin: 02/28/21 09:07 Dose: 1 each Documented by: Pregabalin (Pregabalin 50 Mg Cap) 100 mg PO TID [facility] Last Admin: 02/28/21 14:09 Dose: 100 mg Documented by: Tramadol HCl (Tramadol 50 Mg Tab) 50 mg PO BID PRN PRN Reason: Pain Last Admin: 02/26/21 08:44 Dose: 50 mg Documented by: Discontinued Medications Dexamethasone (Dexamethasone 10 Mg/Ml Sdv) 6 mg IVPUSH ONETIME ONE Stop: 02/24/21 14:40 Last Admin: 02/24/21 15:01 Dose: 6 mg Documented by: Dexamethasone (Dexamethasone 4 Mg Tab) 4 mg PO DAILY [facility] Guaifenesin/Codeine Phosphate (Codeine/Guaifenesin 10-100 Mg/5 Ml Syrup 5 Ml Cup) 10 ml PO ONETIME ONE Stop: 02/24/21 13:29 Last Admin: 02/24/21 13:45 Dose: 10 ml Documented by: Remdesivir 200 mg/ Sodium (Chloride) 250 mls @ 250 mls/hr IV ONETIME ONE Stop: 02/24/21 16:14 Last Admin: 02/24/21 15:35 Dose: 250 mls/hr Documented by: Sodium Chloride (Normal Saline) 1,000 mls @ 30 mls/hr IV STAT [facility] Stop: 02/26/21 00:52 Last Admin: 02/24/21 15:35 Dose: 30 mls/hr Documented by: Remdesivir 100 mg/ Sodium (Chloride) 100 mls @ 100 mls/hr IV Q24H [facility] Stop: 02/28/21 09:59 Oxybutynin Chloride (Oxybutynin 5 Mg Tab) Confirm Administered Dose 10 mg .ROUTE .STK-MED ONE Stop: 02/28/21 08:27 Last Admin: 02/28/21 09:06 Dose: 10 mg Documented by: Oxybutynin 5 Mg Tab. (Er) 2 each PO DAILY [facility] Last Admin: 02/25/21 09:56 Dose: Not Given Documented by: - Exam General: Alert, Oriented Lungs: Normal Respiratory Effort, Rhonchi Cardiovascular: Regular Rate, Regular Rhythm GI/Abdominal Exam: Soft, Non-Tender, No Distention Extremities: Non-Tender, No Pedal Edema Skin: Warm, Dry, Intact Neurological: No New Focal Deficit - Patient Data Lab Results Last 24 hrs: Laboratory Results - last 24 hr 02/28/21 02/28/21 Range/Units 06:59 06:59 WBC 10.85 (4.0-11.0) K/uL RBC 4.11 L (4.30-5.90) M/uL Hgb 13.1 (12.0-16.0) g/dL Hct 38.4 (36.0-46.0) % MCV 93.4 (80.0-98.0) fL MCH 31.9 (27.0-32.0) pg MCHC 34.1 (31.0-37.0) g/dL RDW Std Deviation 48.3 (28.0-62.0) fl RDW Coeff of Reji 14 (11.0-15.0) % Plt Count 406 H (150-400) K/uL MPV 11.60 (7.40-12.00) fL Add Manual Diff YES Neutrophils % (Manual) 71 (48.0-80.0) % Band Neutrophils % 3 % Lymphocytes % (Manual) 18 (16.0-40.0) % Monocytes % (Manual) 8 (0.0-15.0) % Nucleated RBC % 0.0 /100WBC Absolute Seg Neuts 7.7 H (1.4-5.7) Band Neutrophils # 0.3 Lymphocytes # (Manual) 2.0 (0.6-2.4) Monocytes # (Manual) 0.9 H (0.0-0.8) Nucleated RBCs # 0 K/uL Sodium 139 (136-145) mmol/L Potassium 3.7 (3.5-5.1) mmol/L Chloride 103 (98-107) mmol/L Carbon Dioxide 26.8 (21.0-32.0) mmol/L BUN 11 (7.0-18.0) mg/dL Creatinine 0.7 (0.6-1.0) mg/dL Est Cr Clr Drug Dosing 106.69 mL/min Estimated GFR (MDRD) > 60.0 ml/min Glucose 213 H (74-106) mg/dL Calcium 7.7 L (8.5-10.1) mg/dL Total Bilirubin 0.4 (0.2-1.0) mg/dL AST 33 (15-37) IU/L ALT 83 H (14-63) IU/L Alkaline Phosphatase 65 (46-116) U/L Total Protein 6.6 (6.4-8.2) g/dL Albumin 2.3 L (3.4-5.0) g/dL Globulin 4.3 H (2.6-4.0) g/dL Albumin/Globulin Ratio 0.5 L (0.9-1.6) Result Diagrams: 02/28/21 06:59 02/28/21 06:59 Sepsis Event Note - Evaluation Sepsis Screening Result: No Definite Risk - Focused Exam Vital Signs: Vital Signs Temp Pulse Resp BP Pulse Ox 02/28/21 11:00 36.7 C 62 18 124/76 94 L 02/28/21 03:27 36.3 C 56 L 18 127/60 93 L - Problem List & Annotations (1) Acute respiratory failure with hypoxia SNOMED Code(s): 22608579, 731052407 Code(s): J96.01 - ACUTE RESPIRATORY FAILURE WITH HYPOXIA Status: Acute Current Visit: Yes (2) COVID-19 SNOMED Code(s): 232065252 Code(s): U07.1 - COVID-19 Status: Acute Current Visit: Yes - Problem List Review Problem List Initiated/Reviewed/Updated: Yes - My Orders Last 24 Hours: My Active Orders 03/01/21 05:11 CBC WITH AUTO DIFF [HEME] AM COMPREHENSIVE METABOLIC PN,CMP [CHEM] AM 03/02/21 05:11 CBC WITH AUTO DIFF [HEME] AM COMPREHENSIVE METABOLIC PN,CMP [CHEM] AM - Plan Plan:: 40 y/o F admitted for acute hypoxic respiratory failure due to COVID 19 Hypoxia: Continue oxygenation via nasal cannula, currently needing 2.5 L COVID: continue remdesivir and dexamethasone lovenox for DVT prophylaxis
[2021-02-28] MEDS: REMDESIVIR 100 MG in Sodium Chloride 0.9% 100 ML IV SCH (15:42)
[2021-02-28] MEDS: Enoxaparin 40 MG/0.4 ML Syringe SUBCUT SCH (17:59)
--- NOTE | 2021-02-28 20:21 | PCM.PRNOTE ---
- Free Text/Narrative Note: Anes Note I was called to provide IV access for this patient with difficult veins, A #22 TN was placed in inner wrist are of left hand. Flushes with ease. Time with patient [id number] Adalberto Trejo [employer]
[2021-02-28] MEDS ORDERED: REMDESIVIR 100 MG in Sodium Chloride 0.9% 100 ML IV SCH (21:30)
[2021-03-01] MEDS: Albuterol/Ipratropium 4 GM Inhalation Spray INH SCH ×3 (01:35→10:12)
[2021-03-01] MEDS: Pregabalin 50 MG Cap PO SCH (05:59)
[2021-03-01 07:56] LABS: BLOOD UREA NITROGEN,BUN 10 mg/dL (7.0-18.0); CARBON DIOXIDE,CO2 25.1 mmol/L (21.0-32.0); CHLORIDE,CL 102 mmol/L (98-107); GLUCOSE RANDOM 185 mg/dL (74-106); POTASSIUM,K 3.6 mmol/L (3.5-5.1); SODIUM,NA 138 mmol/L (136-145)
[2021-03-01] MEDS: buPROPion 150 MG Tab.ER PO SCH (08:25)
[2021-03-01] MEDS: Benzonatate 100 MG Cap PO PRN (08:25)
[2021-03-01] MEDS: Dexamethasone 4 MG Tab PO SCH (08:26)
[2021-03-01] MEDS: Pantoprazole 40 MG Vial IV SCH (08:26)
[2021-03-01] MEDS: OXYBUTYNIN 10 MG PO SCH (08:27)
[2021-03-01] MEDS: Codeine/guaiFENesin 10-100 MG/5 ML Syrup 5 ML Cup PO PRN (08:28)
--- NOTE | 2021-03-01 11:30 | PCM.DCSUM1 ---
Discharge Summary - Discharge Data Discharge Date: 03/01/21 Discharge Disposition: Home, Self-Care 01 Condition: Stable - Referral to Home Health Primary Care Physician: Bronson Stuart MD - Discharge Diagnosis/Problem(s) (1) Acute respiratory failure with hypoxia SNOMED Code(s): 87520849, 114931901 ICD Code: J96.01 - ACUTE RESPIRATORY FAILURE WITH HYPOXIA Status: Acute Current Visit: Yes (2) COVID-19 SNOMED Code(s): 192918092 ICD Code: U07.1 - COVID-19 Status: Acute Current Visit: Yes - Patient Summary/Data Hospital Course: Patient is a 40 y/o F with PMH of fibromyalgia, vocal cord dysfunction, who was admitted for COVID pneumonia with hypoxia. She presented with a 1 week history of cough, sore throat, headache, body aches, fever as high as 101. In the ER patient was found to be hypoxic, and was started on NC for oxygenation. Her chest x-ray showed bilateral infiltrates, and she tested positive for COVID. Patient was admitted and treated with dexamethasone and remdesivir. She did have gradual improvement in her symptoms over the next five days. Today she is requesting discharge. She hilton desats to 87% with exertion so she was discharged on home oxygen. She is to follow up with Dr. Stuart. - Patient Instructions Diet: Regular Diet as Tolerated Activity: As Tolerated Notify Provider of: Fever, Increased Pain, Nausea and/or Vomiting - Discharge Plan Prescriptions/Med Rec: Albuterol Sulfate [Albuterol Sulfate HFA] 8.5 gm INH Q6H PRN #1 ea PRN Reason: Wheezing Benzonatate [Tessalon Perle] 100 mg PO Q6HR PRN #20 capsule PRN Reason: Cough Home Medications: Home Meds Pregabalin [Lyrica] 100 mg PO TID 11/30/13 [History] traMADol [Ultram] 50 mg PO BID PRN 11/30/13 [History] Norethindrone Acetate [Norethindrone AC ([place])] 5 mg PO BID 02/24/21 [History] Oxybutynin [Oxybutynin ER] 10 mg PO DAILY 02/24/21 [History] buPROPion [buPROPion XL] 150 mg PO DAILY 02/24/21 [History] Melatonin 5 mg PO BEDTIME PRN 02/26/21 [History] Multivitamin [Multi-Vitamin Daily] 1 tab PO DAILY 02/26/21 [History] Valerian Root 500 mg PO BEDTIME PRN 02/26/21 [History] Albuterol Sulfate [Albuterol Sulfate HFA] 8.5 gm INH Q6H PRN #1 ea 03/01/21 [Rx] Benzonatate [Tessalon Perle] 100 mg PO Q6HR PRN #20 capsule 03/01/21 [Rx] Oxygen Therapy Mode: Nasal Cannula Oxygen Flow Rate (L/min): 2 (with exercise) Maintain SpO2% greater than: 90 Patient Handouts: Hypoxia, COVID-19 Frequently Asked Questions, COVID-19, COVID-19 Vaccine Information, Hypoxemia, COVID-19: How to Protect Yourself and Others - CDC, Acute Respiratory Failure, Adult Referrals: Bronson Stuart MD [Primary Care Provider] - 03/16/21 10:00 am - Discharge Summary/Plan Comment DC Time >30 min.: No Total # of Minutes for Discharge Time: 20 - Patient Data Vitals - Most Recent: Last Vital Signs Temp 36.6 C 03/01/21 08:29 Pulse 78 03/01/21 08:29 Resp 16 03/01/21 08:36 BP 143/89 H 03/01/21 08:29 Pulse Ox 94 L 03/01/21 08:36 Weight - Most Recent: 105.007 kg I&O - Last 24 hours: Intake & Output 02/28/21 03/01/21 03/01/21 22:59 06:59 14:59 Intake Total 1140 Output Total 2100 Balance -960 Lab Results - Last 24 hrs: Laboratory Results - last 24 hr 03/01/21 03/01/21 Range/Units 06:59 06:59 WBC 13.24 H (4.0-11.0) K/uL RBC 4.17 L (4.30-5.90) M/uL Hgb 13.3 (12.0-16.0) g/dL Hct 38.2 (36.0-46.0) % MCV 91.6 (80.0-98.0) fL MCH 31.9 (27.0-32.0) pg MCHC 34.8 (31.0-37.0) g/dL RDW Std Deviation 46.2 (28.0-62.0) fl RDW Coeff of Reji 14 (11.0-15.0) % Plt Count 479 H (150-400) K/uL MPV 11.20 (7.40-12.00) fL Add Manual Diff YES Neutrophils % (Manual) 68 (48.0-80.0) % Band Neutrophils % 2 % Lymphocytes % (Manual) 20 (16.0-40.0) % Monocytes % (Manual) 9 (0.0-15.0) % Eosinophils % (Manual) 1 (0.0-7.0) % Nucleated RBC % 0.0 /100WBC Absolute Seg Neuts 9.0 H (1.4-5.7) Band Neutrophils # 0.3 Lymphocytes # (Manual) 2.6 H (0.6-2.4) Monocytes # (Manual) 1.2 H (0.0-0.8) Eosinophils # (Manual) 0.1 (0.0-0.7) Nucleated RBCs # 0 K/uL Sodium 138 (136-145) mmol/L Potassium 3.6 (3.5-5.1) mmol/L Chloride 102 (98-107) mmol/L Carbon Dioxide 25.1 (21.0-32.0) mmol/L BUN 10 (7.0-18.0) mg/dL Creatinine 0.7 (0.6-1.0) mg/dL Est Cr Clr Drug Dosing 106.69 mL/min Estimated GFR (MDRD) > 60.0 ml/min Glucose 185 H (74-106) mg/dL Calcium 8.0 L (8.5-10.1) mg/dL Total Bilirubin 0.5 (0.2-1.0) mg/dL AST 25 (15-37) IU/L ALT 82 H (14-63) IU/L Alkaline Phosphatase 62 (46-116) U/L Total Protein 6.7 (6.4-8.2) g/dL Albumin 2.4 L (3.4-5.0) g/dL Globulin 4.3 H (2.6-4.0) g/dL Albumin/Globulin Ratio 0.6 L (0.9-1.6) Med Orders - Current: Current Medications Acetaminophen (Acetaminophen 325 Mg Tab) 650 mg PO Q4H PRN PRN Reason: Pain (Mild 1-3)/fever Last Admin: 02/25/21 21:19 Dose: 650 mg Documented by: Albuterol/Ipratropium (Albuterol/Ipratropium 3.0-0.5 Mg/3 Ml Neb Soln) 3 ml NEB Q4HRRT PRN PRN Reason: Shortness Of Breath/wheezing Albuterol/Ipratropium (Albuterol/Ipratropium 4 Gm Inhalation [place]) 0 gm INH Q4HRRT FOR[facility], [facility]–1983 Last Admin: 03/01/21 10:12 Dose: 1 puff Documented by: Benzonatate (Benzonatate 100 Mg Cap) 100 mg PO Q6H PRN PRN Reason: Cough Last Admin: 03/01/21 08:25 Dose: 100 mg Documented by: Bupropion HCl (Bupropion 150 Mg Tab.Er) 150 mg PO DAILY [facility], [facility]–1983 Last Admin: 03/01/21 08:25 Dose: 150 mg Documented by: Dexamethasone (Dexamethasone 4 Mg Tab) 6 mg PO DAILY [facility], [facility]1983 Last Admin: 03/01/21 08:26 Dose: 6 mg Documented by: Enoxaparin Sodium (Enoxaparin 40 Mg/0.4 Ml Syringe) 40 mg SUBCUT Q24H [facility], 1928–1983 Last Admin: 02/28/21 17:59 Dose: 40 mg Documented by: Guaifenesin/Codeine Phosphate (Codeine/Guaifenesin 10-100 Mg/5 Ml Syrup 5 Ml Cup) 5 ml PO Q4H PRN PRN Reason: Cough Last Admin: 03/01/21 08:28 Dose: 5 ml Documented by: Norethindrone (Norethindrone 5 Mg Tab) 5 mg PO BID [facility], [facility]1983 Last Admin: 03/01/21 08:27 Dose: 5 mg Documented by: Ondansetron HCl (Ondansetron 4 Mg/2 Ml Sdv) 4 mg IVPUSH Q4H PRN PRN Reason: Nausea/Vomiting Pantoprazole Sodium (Pantoprazole 40 Mg Vial) 40 mg IV DAILY [facility], [facility]–1983 Last Admin: 03/01/21 08:26 Dose: 40 mg Documented by: Oxybutynin 10 Mg Tab (.Er) 1 each PO DAILY [facility]1983 Last Admin: 03/01/21 08:27 Dose: 1 each Documented by: Pregabalin (Pregabalin 50 Mg Cap) 100 mg PO TID DANIEL Last Admin: 03/01/21 05:59 Dose: 100 mg Documented by: Tramadol HCl (Tramadol 50 Mg Tab) 50 mg PO BID PRN PRN Reason: Pain Last Admin: 02/26/21 08:44 Dose: 50 mg Documented by: Discontinued Medications Dexamethasone (Dexamethasone 10 Mg/Ml Sdv) 6 mg IVPUSH ONETIME ONE Stop: 02/24/21 14:40 Last Admin: 02/24/21 15:01 Dose: 6 mg Documented by: Dexamethasone (Dexamethasone 4 Mg Tab) 4 mg PO DAILY [facility], [facility]–1983 Guaifenesin/Codeine Phosphate (Codeine/Guaifenesin 10-100 Mg/5 Ml Syrup 5 Ml Cup) 10 ml PO ONETIME ONE Stop: 02/24/21 13:29 Last Admin: 02/24/21 13:45 Dose: 10 ml Documented by: Remdesivir 200 mg/ Sodium (Chloride) 250 mls @ 250 mls/hr IV ONETIME ONE Stop: 02/24/21 16:14 Last Admin: 02/24/21 15:35 Dose: 250 mls/hr Documented by: Sodium Chloride (Normal Saline) 1,000 mls @ 30 mls/hr IV STAT STA Stop: 02/26/21 00:52 Last Admin: 02/24/21 15:35 Dose: 30 mls/hr Documented by: Remdesivir 100 mg/ Sodium (Chloride) 100 mls @ 100 mls/hr IV Q24H DANIEL Stop: 02/28/21 09:59 Remdesivir 100 mg/ Sodium (Chloride) 100 mls @ 100 mls/hr IV Q24H DANIEL Stop: 02/28/21 16:29 Last Admin: 02/28/21 15:42 Dose: 100 mls/hr Documented by: Remdesivir 100 mg/ Sodium (Chloride) 100 mls @ 100 mls/hr IV Q24H DANIEL Stop: 02/28/21 22:29 Last Admin: 02/28/21 21:56 Dose: 100 mls/hr Documented by: Oxybutynin Chloride (Oxybutynin 5 Mg Tab) Confirm Administered Dose 10 mg .ROUTE .STK-MED ONE Stop: 02/28/21 08:27 Last Admin: 02/28/21 09:06 Dose: 10 mg Documented by: Oxybutynin 5 Mg Tab. (Er) 2 each PO DAILY DANIEL Last Admin: 02/25/21 09:56 Dose: Not Given Documented by:
[2021-03-01 12:15] VITALS: BP 139/87; PULSE 96
== END 2021-03-01 13:03 | disposition home or self-care (01) | DRG 177 ==
LOC: MW.ED 12:22 → MW.MS 16:40
PROVIDERS: ADMIT Student in an Organized Health Care Education/Training Program; ATTEND Student in an Organized Health Care Education/Training Program
PROC: XW033E5 Introduction of Remdesivir Anti-infective into Peripheral Vein, Percutaneous Approach, New Technology Group 5 (ICD-10-PCS; principal; 2021-02-24)
PROC: 3E0333Z Introduction of Anti-inflammatory into Peripheral Vein, Percutaneous Approach (ICD-10-PCS; 2021-02-24)
PROC: 3E0DX3Z Introduction of Anti-inflammatory into Mouth and Pharynx, External Approach (ICD-10-PCS; 2021-02-25)
DX: U07.1 COVID-19 (principal); J96.01 Acute respiratory failure with hypoxia; J12.82 Pneumonia due to coronavirus disease 2019; K21.9 Gastro-esophageal reflux disease without esophagitis; M79.7 Fibromyalgia; J38.3 Other diseases of vocal cords; Z88.2 Allergy status to sulfonamides; Z79.899 Other long term (current) drug therapy
CPT/HCPCS: 36410; 36415; 71045; 71045-26; 80053; 82248; 83735; 84100; 84484; 85025; 87804; 94640; 96374; 99285-25; A9270-GY; C9113; J1100; J1650; J7030; J7050; J8540; U0002